=== PATIENT | male | born 1950 | race Caucasian/White ===

== ENCOUNTER 2017-05-31 13:09 | Observation (INO) ==
[~2017-05-31 13:09] MED LIST: Acetaminophen 325 MG TABLET PO PRN; Naloxone 0.4 MG/ML INJ IVP PRN
[2017-05-31 13:51] LABS: Basophils % 0.6 %; Eosinophils # 0.2 K/mcL (0.0-0.6); Eosinophils % 2.2 %; Hematocrit 49.2 % (37.5-50.1); Hemoglobin 15.7 g/dL (12.9-16.9); Immature Granulocytes % 0.4 % (0-4); Lymphocytes # 1.5 K/mcL (0.6-4.6); Lymphocytes % 21.2 %; Mean Corpuscular HGB Conc 31.9 g/dL (31.6-35.5); Mean Corpuscular Hemoglobin 28.8 pg (28.0-33.3); Mean Corpuscular Volume 90.1 fL (83.0-100.0); Mean Platelet Volume 8.9 fL (9.4-12.4); Monocytes % 13.9 %; Neutrophils # 4.5 K/mcL (1.6-8.9); Platelet Count 255 K/mcL (140-400); Red Blood Count 5.46 M/mcL (4.19-5.50); Red Cell Distribution Width 13.8 % (11.5-14.5); Segmented Neutrophils % 61.7 %
[2017-05-31 14:04] LABS: Troponin I < 0.03 ng/mL (< 0.04)
[2017-05-31 14:30] LABS: Alanine Aminotransferase 28 Units/L (7-52); Albumin 4.4 g/dL (3.5-5.7); Albumin/Globulin Ratio 1.3 (1.1-2.2); Alkaline Phosphatase 111 Units/L (34-104); Aspartate Amino Transferase 27 Units/L (13-39); BUN/Creatinine Ratio 10 (6-26); Bilirubin,Total 0.8 mg/dL (0.3-1.0); Blood Urea Nitrogen 12 mg/dL (8-23); Calcium 9.5 mg/dL (8.6-10.3); Carbon Dioxide 28 mEq/L (23-29); Chloride 98 mEq/L (98-107); Globulin 3.3 g/dL (2.4-3.5); Glucose 166 mg/dL (70-105); Osmolality,Calculated 286 (280-300); Potassium 4.4 mEq/L (3.5-5.1); Sodium 136 mEq/L (136-145); Total Protein 7.7 g/dL (6.4-8.9); eGFR For African Americans > 60 (> 60); eGFR For Non-African Americans > 60 (> 60)
[2017-05-31] MEDS ORDERED: Isovue-370 500 ML INFUS..BTL IV ONE (14:42)
--- NOTE | 2017-05-31 14:50 | Emergency Department Note ---
Disposition Clinical Impression: Unstable angina, History of coronary artery stent placement Chest pain Qualifiers: Chest pain type: unspecified Qualified Code(s): R07.9 - Chest pain, unspecified Disposition: Admitted As Inpatient Condition: Good Referrals: Aleiad Nolen CNP [Primary Care Provider] - Forms: ED Satisfaction Letter Time of Disposition: 16:04 Chest Pain HPI - General Chief Complaint: ED Chest Pain Stated Complaint: "CP x 2 days,took 2 nitro yesterday and 1 today" Time Seen by Provider: 05/31/17 14:17 Source: patient Limitations: no limitations Vital Signs Reviewed: Yes Nursing Notes Reviewed: Yes - History of Present Illness HPI Narrative: 67-year-old male history of hypertension, diabetes, hyperlipidemia, CAD s/p stents presents to the emergency department with chest pain. Intermittent chest pain for the past 2 days. Most recent incident noon today. This occurred while at rest. Sometimes certain movements with his left arm seems to exacerbate but pain does not go away afterwards. He has taken nitro with some minimal relief. Today he has only taken one nitro. He takes a baby aspirin daily. Describes as a sharp pain in his left chest without radiation to the jaw or the back. Currently his pain is nearly gone rates as 4/10 from 09/23. He does have some associated fatigue with the symptoms. He states this is similar to his prior [place] infarctions. On Tuesday when initially occurred it occurred with exertion he took 2 nitro with relief within an hour. He has some associated shortness of breath and diaphoresis. Denies any nausea or vomiting. He is noticed some swelling in his legs. He recently traveled from [place] here to [place] which was a [address] Dominguez is his legal services professional which he has not seen and over 5 years. No recent echocardiogram. No history of blood clots. Last heart catheterization from 10/15/14 showed single vessel CAD with previously stented right PAV segment patent. Pt complaint: chest pain Severity scale (1-10): 8 - Related Data Home Medications Medication Instructions Recorded Confirmed Amitriptyline [Elavil] 25 mg PO HS #0 10/15/14 05/31/17 Aspirin Enteric Coated [Aspirin EC] 81 mg PO DAILY 10/15/14 05/31/17 Atorvastatin [Lipitor] 80 mg PO HS 10/15/14 05/31/17 Metformin [Glucophage] 1,000 mg PO BID 10/15/14 05/31/17 Metoprolol [Lopressor] 25 mg PO BID #0 10/15/14 05/31/17 Furosemide [Lasix] 20 mg PO DAILY 05/31/17 05/31/17 Glimepiride [Amaryl] 4 mg PO QAM 05/31/17 05/31/17 HYDROcodone/Acet 7.5/325 mg [[place] 1 tab PO BID PRN 05/31/17 05/31/17 7.5-325 mg] Lisinopril [Zestril] 20 mg PO DAILY 05/31/17 05/31/17 Sildenafil Citrate [Revatio] 20 - 100 mg PO DAILY 05/31/17 05/31/17 Testosterone Cypionate 200 mg IM Q2W 05/31/17 05/31/17 [Depo-Testosterone] Previous Rx's Medication Instructions Recorded Finasteride [Proscar] 5 mg PO DAILY tablet 10/16/14 Allergies Allergy/AdvReac Type Severity Reaction Status Date / Time morphine AdvReac Itching Verified 05/31/17 16:05 All systems ED: reviewed and negative except as stated. Review of Systems: As Per HPI Constitutional: Reports: weakness. Denies: fever, chills ENT ED: Denies: congestion Cardiovascular: Reports: chest pain, dyspnea on exertion. Denies: palpitations Respiratory: Reports: dyspnea. Denies: cough Gastrointestinal: Denies: abdominal pain, nausea, vomiting Genitourinary: Denies: urgency, dysuria Musculoskeletal: Denies: back pain, neck pain Integumentary: Denies: rash, abrasion Neurological: Reports: weakness. Denies: headache Psychiatric: Denies: anxiety, depression Endocrine: Reports: fatigue Chest Pain PMH - Past Medical History Medical history: Reports: coronary artery disease, diabetes, hyperlipidemia, hypertension, myocardial infarction, other Surgical history: Reports: angioplasty/stent, cholecystectomy, orthopedic, other (Lumbar spine fusion), other (pain pump delivering Dilaudid to his spine) Psychiatric history: Reports: no psych history - Social History Smoking Status: Never smoker Alcohol use: Reports: none Drug use: Reports: none Physical Exam - General Limitations: no limitations General appearance: alert, in no apparent distress, obese - Head Head exam: atraumatic, normocephalic, normal inspection - Eye Eye exam: Present: normal appearance, PERRL, EOMI - ENT ENT exam: normal exam, normal oropharynx, mucous membranes moist - Neck Neck exam: Present: normal inspection, full ROM, trachea midline - Chest Chest inspection: Present: normal inspection, symmetric chest wall rise, tenderness (left chest) - Respiratory Respiratory exam: Present: normal lung sounds bilaterally. Absent: respiratory distress, wheezes - Cardiovascular Cardiovascular exam: Present: regular rate, normal rhythm, normal heart sounds - Expanded Cardiovascular Exam Peripheral pulses: 2+: radial (R), radial (L) - Abdominal Exam Abdominal exam: Present: soft, Non-Tender, normal bowel sounds, scar (right mid abdomen from pain pump). Absent: tenderness, distention, guarding, rebound, rigidity - Extremities Exam Extremities exam: Present: normal inspection, full ROM, normal capillary refill. Absent: tenderness, pedal edema, calf tenderness - Back Exam Back exam: Present: normal inspection, full ROM. Absent: tenderness, CVA tenderness (R), CVA tenderness (L) - Neurological Exam Neurological exam: Present: alert, oriented X3 - Psychiatric Psychiatric exam: Present: normal affect, normal mood - Skin Skin exam: Present: warm, dry, intact, normal color. Absent: rash, cyanosis, diaphoresis Course Course Narrative: 67-year-old male history of CAD presents with chest pain. Ongoing for the past 48 hours. States similar to his prior myocardial infarction. Worse with exertion but also worse sometimes at rest. Some associated shortness of breath. Exam is unremarkable. Given recentlong-distance travelwill obtain a CT of the chess to evaluate for pulmonary embolism. Initial EKG performed 1320 showed hyper acute T waves in the septal leads. Repeat EKG performed 1501 shows similar findings with minimally elevated ST segments. spoke to the on-call legal services professional and recommend to continue treatment for unstable angina, no emergent heart catheterization. Patient will be admitted. HEART score 4. - Reevaluation(s) Reevaluation #1: Pain resolved after 3rd nitro. BP remains stable. Awaiting CTA chest for PE. Patient placed on heparin low ACS, denies any GI bleed symptoms such as hematemesis, hemoptysis, hematuria, bloody stools, or melena. Time: 16:02 Reevaluation #2: Please see my attending's note for fiinal disposition and CT chest imaging followup. Treating for unstable angina. Time: 17:04 - Consultations Consultation #1: Spoke to gravel screener Dr. Rachana Moreira regarding the patient' s symptoms and EKG. Dr. Moreira reviewed the EKGs our fax. Review of his catheterization 2014. At this time does not meet STEMI criteria. Recommend to treat as unstable angina with aspirin, nitroglycerin and consideration for heparin. Patient will be getting a CT of the chest to evaluate for possible pulmonary embolism. Patient will require admission. Time: 15:33 Vital Signs Temperature 98.3 F 05/31/17 13:15 Pulse Rate 79 05/31/17 13:15 Respiratory Rate 20 05/31/17 13:15 Blood Pressure 196/84 05/31/17 13:15 O2 Sat by Pulse Oximetry 94 05/31/17 13:15 Temperature 98.3 F 05/31/17 13:15 Pulse Rate 80 05/31/17 15:53 Respiratory Rate 16 05/31/17 15:53 Blood Pressure 146/81 05/31/17 15:53 O2 Sat by Pulse Oximetry 92 05/31/17 15:53 Oxygen Delivery Oxygen Delivery Room Air Chest Pain - MDM Narrative Medical decision making narrative: Patient was discussed with my attending physician who agrees with ED management and final disposition. They independently evaluated the patient. Please refer to their attestation to this encounter for additional information. This note was generated by [employer] voice recognition software and as a result grammatical or spelling errors may occur using this program. - Medical Records Medical records reviewed: Yes I reviewed the patient's medical records. - Lab Data Lab results reviewed: Yes I reviewed the patient's lab results. Result diagrams: 05/31/17 13:27 05/31/17 13:27 Lab Results 05/31/17 05/31/17 05/31/17 Range/Units 13:27 13:27 16:10 WBC 7.3 (4.3-11.1) K/mcL RBC 5.46 (4.19-5.50) M/mcL Hgb 15.7 (12.9-16.9) g/dL Hct 49.2 (37.5-50.1) % MCV 90.1 (83.0-100.0) fL MCH 28.8 (28.0-33.3) pg MCHC 31.9 (31.6-35.5) g/dL RDW 13.8 (11.5-14.5) % Plt Count 255 (140-400) K/mcL MPV 8.9 L (9.4-12.4) fL Immature Gran % 0.4 (0-4) % Seg Neutrophils % 61.7 % Lymphocytes % 21.2 % Monocytes % 13.9 % Eosinophils % 2.2 % Basophils % 0.6 % Neutrophils # 4.5 (1.6-8.9) K/mcL Lymphocytes # 1.5 (0.6-4.6) K/mcL Monocytes # 1.0 (0.0-1.3) K/mcL Eosinophils # 0.2 (0.0-0.6) K/mcL Basophils # 0.0 (0.0-0.2) K/mcL Sodium 136 (136-145) mEq/L Potassium 4.4 (3.5-5.1) mEq/L Chloride 98 (98-107) mEq/L Carbon Dioxide 28 (23-29) mEq/L BUN 12 (8-23) mg/dL Creatinine 1.20 (0.70-1.30) mg/dL Est GFR ( Amer) > 60 (> 60) Est GFR (Non-Af Amer) > 60 (> 60) BUN/Creatinine Ratio 10 (6-26) Glucose 166 H (70-105) mg/dL Calculated Osmolality 286 (280-300) Calcium 9.5 (8.6-10.3) mg/dL Total Bilirubin 0.8 (0.3-1.0) mg/dL AST 27 (13-39) Units/L ALT 28 (7-52) Units/L Alkaline Phosphatase 111 H (34-104) Units/L Troponin I < 0.03 < 0.03 (< 0.04) ng/mL B-Natriuretic Peptide (Less than 100) pg/mL Serum Total Protein 7.7 (6.4-8.9) g/dL Albumin 4.4 (3.5-5.7) g/dL Globulin 3.3 (2.4-3.5) g/dL Albumin/Globulin Ratio 1.3 (1.1-2.2) TSH 1.760 (0.340-5.600) mcIU/mL 05/31/17 Range/Units 16:10 WBC (4.3-11.1) K/mcL RBC (4.19-5.50) M/mcL Hgb (12.9-16.9) g/dL Hct (37.5-50.1) % MCV (83.0-100.0) fL MCH (28.0-33.3) pg MCHC (31.6-35.5) g/dL RDW (11.5-14.5) % Plt Count (140-400) K/mcL MPV (9.4-12.4) fL Immature Gran % (0-4) % Seg Neutrophils % % Lymphocytes % % Monocytes % % Eosinophils % % Basophils % % Neutrophils # (1.6-8.9) K/mcL Lymphocytes # (0.6-4.6) K/mcL Monocytes # (0.0-1.3) K/mcL Eosinophils # (0.0-0.6) K/mcL Basophils # (0.0-0.2) K/mcL Sodium (136-145) mEq/L Potassium (3.5-5.1) mEq/L Chloride (98-107) mEq/L Carbon Dioxide (23-29) mEq/L BUN (8-23) mg/dL Creatinine (0.70-1.30) mg/dL Est GFR ( Amer) (> 60) Est GFR (Non-Af Amer) (> 60) BUN/Creatinine Ratio (6-26) Glucose (70-105) mg/dL Calculated Osmolality (280-300) Calcium (8.6-10.3) mg/dL Total Bilirubin (0.3-1.0) mg/dL AST (13-39) Units/L ALT (7-52) Units/L Alkaline Phosphatase (34-104) Units/L Troponin I (< 0.04) ng/mL B-Natriuretic Peptide 16 (Less than 100) pg/mL Serum Total Protein (6.4-8.9) g/dL Albumin (3.5-5.7) g/dL Globulin (2.4-3.5) g/dL Albumin/Globulin Ratio (1.1-2.2) TSH (0.340-5.600) mcIU/mL - Radiology Data Radiology results reviewed: Yes I reviewed the patient's radiology results. Chest X-Ray 05/31/17 13:18 IMPRESSION: Mild left basilar atelectasis versus pneumonia. D/ / Abisai Carmona MD / Abisai Carmona MD Interpreting Provider: Abisai Carmona MD - EKG Data EKG attestation: Yes I reviewed and interpreted this EKG. EKG results narrative: EKG performed 2017 normal sinus rhythm 82 bpm, no ST elevation or depression , hyper acute T-wave seen in the anterior leads, Q waves in lead III seen on prior EKG. Intervals are within normal limits. Compared to old EKG performed 03/31/2015 shows sinus bradycardia with subtle T wave changes. Will repeat EKG to reevaluate the T waves. No acute ischemic changes. Repeat EKG performed 1501 sinus rhythm 75 beats per minute, persistent hyper acute change T waves with some mild ST segment elevation and V2. Heart Score - Score History: Moderately Suspicious EKG: Normal Age: 45-65 Risk Factors: Equal/Greater than 3 risk factor or history of atherosclerotic disease Troponin: Less than normal limit HEART Score Total: 4 Attestation Statement - Attestation Attestation: I, Bernardino Farley DO, examined this patient [id number] and my medical decision-making was reviewed with Louie Cole DO , Resident Physician. I agree with the documented findings, disposition and treatment plan as described except to the extent set forth below. Please see my progress notes for details.
[2017-05-31] MEDS ORDERED: Aspirin 81 MG TAB.CHEW PO STA (15:07)
[2017-05-31] MEDS: Nitroglycerin 0.4 MG TAB.SUBL SL PRN ×3 (15:32→15:51)
[2017-05-31] MEDS ORDERED: *HR* Heparin 5,000 UNIT/ML VIAL IVP PRN ×2 (16:00)
[2017-05-31] MEDS ORDERED: *HR* Heparin 5,000 UNIT/ML VIAL IVP ONE (16:00)
--- NOTE | 2017-05-31 16:21 | Emergency Department Note ---
Disposition Clinical Impression: Unstable angina, History of coronary artery stent placement Chest pain Qualifiers: Chest pain type: unspecified Qualified Code(s): R07.9 - Chest pain, unspecified Disposition: Admitted As Inpatient Condition: Good Referrals: Aleida Nolen CNP [Primary Care Provider] - Forms: ED Satisfaction Letter Time of Disposition: 17:52 General Adult HPI - General Chief complaint: ED Chest Pain Stated complaint: "CP x 2 days,took 2 nitro yesterday and 1 today" Time Seen by Provider: 05/31/17 14:17 Source: patient Limitations: no limitations - History of Present Illness Pain Scale: 8 - Related Data Home Medications Medication Instructions Recorded Confirmed Amitriptyline [Elavil] 25 mg PO HS #0 10/15/14 05/31/17 Aspirin Enteric Coated [Aspirin EC] 81 mg PO DAILY 10/15/14 05/31/17 Atorvastatin [Lipitor] 80 mg PO HS 10/15/14 05/31/17 Metformin [Glucophage] 1,000 mg PO BID 10/15/14 05/31/17 Metoprolol [Lopressor] 25 mg PO BID #0 10/15/14 05/31/17 Furosemide [Lasix] 20 mg PO DAILY 05/31/17 05/31/17 Glimepiride [Amaryl] 4 mg PO QAM 05/31/17 05/31/17 HYDROcodone/Acet 7.5/325 mg [[place] 1 tab PO BID PRN 05/31/17 05/31/17 7.5-325 mg] Lisinopril [Zestril] 20 mg PO DAILY 05/31/17 05/31/17 Sildenafil Citrate [Revatio] 20 - 100 mg PO DAILY 05/31/17 05/31/17 Testosterone Cypionate 200 mg IM Q2W 05/31/17 05/31/17 [Depo-Testosterone] Previous Rx's Medication Instructions Recorded Finasteride [Proscar] 5 mg PO DAILY tablet 10/16/14 Allergies Allergy/AdvReac Type Severity Reaction Status Date / Time morphine AdvReac Itching Verified 05/31/17 16:05 Constitutional: Reports: weakness. Denies: fever, chills ENT ED: Denies: congestion Cardiovascular: Reports: chest pain, dyspnea on exertion. Denies: palpitations Respiratory: Reports: dyspnea. Denies: cough Gastrointestinal: Denies: abdominal pain, nausea, vomiting Genitourinary: Denies: urgency, dysuria Musculoskeletal: Denies: back pain, neck pain Integumentary: Denies: rash, abrasion Neurological: Reports: weakness. Denies: headache Psychiatric: Denies: anxiety, depression Endocrine: Reports: fatigue Past Medical History - Past Medical History Medical history: Reports: coronary artery disease, diabetes, hyperlipidemia, hypertension, myocardial infarction, other Surgical history: Reports: angioplasty/stent, cholecystectomy, orthopedic, other (Lumbar spine fusion), other (pain pump delivering Dilaudid to his spine) Psychiatric history: Reports: no psych history - Social History Smoking Status: Never smoker Smokeless Tobacco Status: No Alcohol use: Reports: none Drug use: Reports: none Physical Exam - General Limitations: no limitations General appearance: alert, in no apparent distress, obese Course Vital Signs Temperature 98.3 F 05/31/17 13:15 Pulse Rate 79 05/31/17 13:15 Respiratory Rate 20 05/31/17 13:15 Blood Pressure 196/84 05/31/17 13:15 O2 Sat by Pulse Oximetry 94 05/31/17 13:15 Temperature 98.3 F 05/31/17 13:15 Pulse Rate 80 05/31/17 15:53 Respiratory Rate 16 05/31/17 15:53 Blood Pressure 146/81 05/31/17 15:53 O2 Sat by Pulse Oximetry 92 05/31/17 15:53 Oxygen Delivery Oxygen Delivery Room Air Medical Decision Making - Lab Data Result diagrams: 05/31/17 13:27 05/31/17 13:27 Lab Results 05/31/17 05/31/17 05/31/17 Range/Units 13:27 13:27 13:27 WBC 7.3 (4.3-11.1) K/mcL RBC 5.46 (4.19-5.50) M/mcL Hgb 15.7 (12.9-16.9) g/dL Hct 49.2 (37.5-50.1) % MCV 90.1 (83.0-100.0) fL MCH 28.8 (28.0-33.3) pg MCHC 31.9 (31.6-35.5) g/dL RDW 13.8 (11.5-14.5) % Plt Count 255 (140-400) K/mcL MPV 8.9 L (9.4-12.4) fL Immature Gran % 0.4 (0-4) % Seg Neutrophils % 61.7 % Lymphocytes % 21.2 % Monocytes % 13.9 % Eosinophils % 2.2 % Basophils % 0.6 % Neutrophils # 4.5 (1.6-8.9) K/mcL Lymphocytes # 1.5 (0.6-4.6) K/mcL Monocytes # 1.0 (0.0-1.3) K/mcL Eosinophils # 0.2 (0.0-0.6) K/mcL Basophils # 0.0 (0.0-0.2) K/mcL PT 12.7 H (9.4-12.1) Seconds INR 1.2 APTT 32.0 (26.0-36.0) Seconds Sodium 136 (136-145) mEq/L Potassium 4.4 (3.5-5.1) mEq/L Chloride 98 (98-107) mEq/L Carbon Dioxide 28 (23-29) mEq/L BUN 12 (8-23) mg/dL Creatinine 1.20 (0.70-1.30) mg/dL Est GFR ( Amer) > 60 (> 60) Est GFR (Non-Af Amer) > 60 (> 60) BUN/Creatinine Ratio 10 (6-26) Glucose 166 H (70-105) mg/dL Calculated Osmolality 286 (280-300) Calcium 9.5 (8.6-10.3) mg/dL Total Bilirubin 0.8 (0.3-1.0) mg/dL AST 27 (13-39) Units/L ALT 28 (7-52) Units/L Alkaline Phosphatase 111 H (34-104) Units/L Troponin I < 0.03 (< 0.04) ng/mL B-Natriuretic Peptide (Less than 100) pg/mL Serum Total Protein 7.7 (6.4-8.9) g/dL Albumin 4.4 (3.5-5.7) g/dL Globulin 3.3 (2.4-3.5) g/dL Albumin/Globulin Ratio 1.3 (1.1-2.2) TSH 1.760 (0.340-5.600) mcIU/mL 05/31/17 05/31/17 Range/Units 16:10 16:10 WBC (4.3-11.1) K/mcL RBC (4.19-5.50) M/mcL Hgb (12.9-16.9) g/dL Hct (37.5-50.1) % MCV (83.0-100.0) fL MCH (28.0-33.3) pg MCHC (31.6-35.5) g/dL RDW (11.5-14.5) % Plt Count (140-400) K/mcL MPV (9.4-12.4) fL Immature Gran % (0-4) % Seg Neutrophils % % Lymphocytes % % Monocytes % % Eosinophils % % Basophils % % Neutrophils # (1.6-8.9) K/mcL Lymphocytes # (0.6-4.6) K/mcL Monocytes # (0.0-1.3) K/mcL Eosinophils # (0.0-0.6) K/mcL Basophils # (0.0-0.2) K/mcL PT (9.4-12.1) Seconds INR APTT (26.0-36.0) Seconds Sodium (136-145) mEq/L Potassium (3.5-5.1) mEq/L Chloride (98-107) mEq/L Carbon Dioxide (23-29) mEq/L BUN (8-23) mg/dL Creatinine (0.70-1.30) mg/dL Est GFR ( Amer) (> 60) Est GFR (Non-Af Amer) (> 60) BUN/Creatinine Ratio (6-26) Glucose (70-105) mg/dL Calculated Osmolality (280-300) Calcium (8.6-10.3) mg/dL Total Bilirubin (0.3-1.0) mg/dL AST (13-39) Units/L ALT (7-52) Units/L Alkaline Phosphatase (34-104) Units/L Troponin I < 0.03 (< 0.04) ng/mL B-Natriuretic Peptide 16 (Less than 100) pg/mL Serum Total Protein (6.4-8.9) g/dL Albumin (3.5-5.7) g/dL Globulin (2.4-3.5) g/dL Albumin/Globulin Ratio (1.1-2.2) TSH (0.340-5.600) mcIU/mL Critical Care Time Critical Care Time: Yes Total Critical Care Time: 35 Attestation: Critical care performed: Time is exclusive of separately billable procedures. Time includes: direct patient care, patient reassessment, coordination of patient care, interpretation of data (laboratory data, radiology data, and respiratory data), review of patient's medical records, medical consultation and documentation of patient care. Procedures included in critical care time: Procedures excluded from critical care time: Attestation Statement - Attestation Attestation: I, Bernardino Farley DO, examined this patient [id number] and my medical decision-making was reviewed with Louie Cole DO , Resident Physician. I agree with the documented findings, disposition and treatment plan as described except to the extent set forth below. Please see my progress notes for details. 67-year-old male presents to the emergency room for evaluation of chest pain. Patient has a history of coronary artery disease is required stenting. Patient took nitroglycerin at home and had resolution of the symptoms he decided to come in after several hours his symptoms is not greater than 24-hour secondary to his history. Patient does take aspirin but does not take any other anticoagulation. Patient denies any trauma or injury. Denies any recent illnesses fevers or chills. Denies any shortness of breath headache vision changes nausea vomiting or diarrhea. Having chest pain this point. Nitroglycerin and aspirin will be given along with EKG. Patient had with the repeat EKG ordered as well. Chest x-ray EKG labs include a CBC chemistry troponin F[place] this point. Disposition will most likely be admission to hospital. See detailed documentation of the physical exam, medical intervention , medical decision-making and disposition in the resident physician's note. No critical care applied treatment course was started 1615 Patient has negative initial troponin and EKG. Repeat EKG collected shows potential increase in elevation in leads V to V3. This information was passed onto the on-call smoking pipe maker. She recommended continuation of the symptomatic control with nitroglycerin and then start the patient on heparin. Patient denies any GI bleed, gastric ulcer, acid reflux, hematochezia , melena. Patient will be started on heparin at this time and medical management will be established. Patient had completion of the mitral travels almost complete resolution of the symptoms of this point. No further intervention needed. Patient will be admitted to the hospitalist for definitive management once the symptom control is completed and heparin is started. CT angiography of the chest is still pending secondary to the patient' s recent long-term travel as well as chest discomfort and shortness of breath 35 minutes of critical care applied to this patient's treatment course. [address] imaging of the chest. No acute signs of pulmonary emboli. Patient will be admitted for definitive management. Patient has stable presentation this time. Heparin has been started. CT angiography of the chest is negative for acute signs of pulmonary my infection. Patient will be admitted for ACS rule out and evaluation. Patient is otherwise clinically stable pain is been resolved entire treatment course here in the emergency room.
[2017-05-31 17:02] LABS: INR 1.2; Prothrombin Time 12.7 Seconds (9.4-12.1)
[2017-05-31] MEDS: Heparin 25,000 UNIT/500 ML D5W 25,000 UNIT/500 ML BAG IVC SCH (17:57)
[2017-06-01 00:25] LABS: Basophils # 0.1 K/mcL (0.0-0.2); Basophils % 0.7 %; Eosinophils # 0.2 K/mcL (0.0-0.6); Eosinophils % 2.7 %; Hematocrit 43.6 % (37.5-50.1); Hemoglobin 14.4 g/dL (12.9-16.9); Immature Granulocytes % 0.2 % (0-4); Lymphocytes # 2.4 K/mcL (0.6-4.6); Lymphocytes % 27.6 %; Mean Corpuscular Hemoglobin 29.1 pg (28.0-33.3); Mean Corpuscular Volume 88.1 fL (83.0-100.0); Monocytes # 1.1 K/mcL (0.0-1.3); Monocytes % 13.1 %; Neutrophils # 4.8 K/mcL (1.6-8.9); Platelet Count 248 K/mcL (140-400); Red Blood Count 4.95 M/mcL (4.19-5.50); Red Cell Distribution Width 13.7 % (11.5-14.5); Segmented Neutrophils % 55.7 %
[2017-06-01 00:38] LABS: BUN/Creatinine Ratio 11 (6-26); Blood Urea Nitrogen 12 mg/dL (8-23); Calcium 8.8 mg/dL (8.6-10.3); Carbon Dioxide 29 mEq/L (23-29); Chloride 100 mEq/L (98-107); Glucose 145 mg/dL (70-105); Osmolality,Calculated 280 (280-300); Potassium 4.1 mEq/L (3.5-5.1); Sodium 134 mEq/L (136-145); eGFR For African Americans > 60 (> 60); eGFR For Non-African Americans > 60 (> 60)
[2017-06-01] MEDS: 0.9 % Sodium Chloride 1,000 ML IVC SCH ×2 (01:35→21:04)
--- NOTE | 2017-06-01 01:43 | Internal Med History&Physical ---
Date of Encounter: 05/31/17 Time of Encounter: 20:00 Internal Medicine - H&P: HPI Chief complaint: Chest pain Admitted From: Home Plans for Post Hospital Care: Home History of present illness: Mr. Kaiser is a 67 year old male presented to ER for chest pain. Past medical history is significant for CAD S/P stent, diabetes, hypertension, chronic back pain on pain pump. Patient said he started to have chest pain since Tuesday evening, pain is intermittent, resolved after sublingual nitroglycerin. Patient has to episode of chest pain on Tuesday and one episode on Tuesday. Today patient has chest pain , more constant, lasted several hours. Pain is located on mid chest, radiated to left arm, sharp. Patient has shortness of breath, and diaphoresis. No nausea. In the emergency room, patient was considered unstable angina and cardiac consult was called, recommend to start heparin drip. Patient was placed on heparin drip and admitted for further management. When I saw patient in the emergency room, patient is pain-free. Past Med Surg Social Fam HX - Past Medical History Medical history: coronary artery disease, diabetes, hyperlipidemia, hypertension , myocardial infarction, other Psychiatric history: no psych history - Past Surgical History Surgical History: angioplasty/stent, cholecystectomy, orthopedic, other (Lumbar spine fusion), other (pain pump delivering Dilaudid to his spine) - Social History Smoking Status: Never smoker Smokeless Tobacco Status: No Alcohol use: none Drug use: none - Family History Mother Living Status: Hx Family Neurologic Disorders: Yes (alzheimers) Father Living Status: Hx Family Cardiac Disorders: Yes (Patient states his father had heart spasms which presumably was angina) Sister Living Status: Still Living Internal Medicine - H&P: Meds Amitriptyline [Elavil] 25 mg PO HS #0 10/15/14 [History] Aspirin Enteric Coated [Aspirin EC] 81 mg PO DAILY 10/15/14 [History] Atorvastatin [Lipitor] 80 mg PO HS 10/15/14 [History] Metformin [Glucophage] 1,000 mg PO BID 10/15/14 [History] Metoprolol [Lopressor] 25 mg PO BID #0 10/15/14 [History] Finasteride [Proscar] 5 mg PO DAILY tablet 10/16/14 [Rx] Furosemide [Lasix] 20 mg PO DAILY 05/31/17 [History] Glimepiride [Amaryl] 4 mg PO QAM 05/31/17 [History] HYDROcodone/Acet 7.5/325 mg [[place] 7.5-325 mg] 1 tab PO BID PRN 05/31/17 [ History] Lisinopril [Zestril] 20 mg PO DAILY 05/31/17 [History] Sildenafil Citrate [Revatio] 20 - 100 mg PO DAILY 05/31/17 [History] Testosterone Cypionate [Depo-Testosterone] 200 mg IM Q2W 05/31/17 [History] 3 Allergy/AdvReac Type Severity Reaction Status Date / Time morphine AdvReac Itching Verified 05/31/17 16:05 All Systems PM: A 10-system review of systems was performed and is negative for pertinent findings except as documented above in the HPI. - Constitutional Vitals: Temp Pulse Resp BP Pulse Ox 98.3 F 67 18 101/68 97 06/01/17 01:20 06/01/17 01:20 06/01/17 01:20 06/01/17 01:20 06/01/17 01:20 General appearance: Present: A&O X 3, no acute distress, answers questions appropriately - Head Head exam: Present: atraumatic, normocephalic - Eye Eye exam: Present: PERRL, conjuntiva pink, sclera anicteric Pupils: Present: PERRL - Neck Neck exam general surgery: Present: supple, trachea midline. Absent: lymphadenopathy - Respiratory Respiratory exam: Present: CTAB. Absent: accessory muscle use, rales, rhonchi, wheezes - Cardiovascular Cardiovascular exam: Present: RRR, +S1, +S2. Absent: diastolic murmur, gallop, rubs, systolic murmur - GI/Abdominal GI/Abdominal exam: Present: normal bowel sounds, soft, no peritoneal signs. Absent: distended, tenderness - Extremities Exam Extremities exam: Present: pedal edema (Mild pedal edema bilaterally), warm, radial pulses palpable and symmetrical. Absent: calf tenderness, cyanotic - Neurological Exam Neurological exam: Present: CN II-XII intact, oriented X3, no focal deficits. Absent: pronater drift, facial droop, speech deficit - Skin Skin exam: Present: dry, intact Internal Med - H&P Results - Labs CBC & Chem 7: 06/01/17 00:07 06/01/17 00:07 Labs: Short CBC 06/01/17 Range/Units 00:07 WBC 8.6 (4.3-11.1) K/mcL Hgb 14.4 (12.9-16.9) g/dL Hct 43.6 (37.5-50.1) % Plt Count 248 (140-400) K/mcL Neutrophils # 4.8 (1.6-8.9) K/mcL BMP 06/01/17 00:07 Sodium 134 L Potassium 4.1 Chloride 100 Carbon Dioxide 29 BUN 12 Creatinine 1.07 Glucose 145 H Calcium 8.8 Cardiac Enzymes 06/01/17 Range/Units 00:07 Troponin I < 0.03 (< 0.04) ng/mL - Assessment and plan (1) DVT prophylaxis Current Visit: Yes Status: Acute Assessment and plan: Patient is on heparin drip (2) Chest pain Current Visit: Yes Status: Acute Assessment and plan: Patient has chest pain, history of CAD S/P stent. EKG has been reviewed by cardiology, STEMI is ruled out. CTA negative for PE or dissection - Place patient on continuous cardiac monitoring - Track 3 sets of troponin - Heparin drip started per cardiology for unstable angina - Cardio consult will see patient in a.m. Qualifiers: Chest pain type: unspecified Qualified Code(s): R07.9 - Chest pain, unspecified (3) History of coronary artery stent placement Current Visit: Yes Status: Acute Assessment and plan: Continue home medications aspirin, beta lois, and statin. 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 Closely monitor BP Qualifiers: Hypertension type: essential hypertension Qualified Code(s): I10 - Essential (primary) hypertension - Time Spent With Patient Total time spent is greater than 50% in coordination of care (as documented) at patient's floor/unit and/or counseling patient: 40 minutes Greater than 35 minutes
[2017-06-01] MEDS ORDERED: Dextrose Gel 15 GM/37.5 ML TUBE PO PRN ×2 (01:49)
[2017-06-01] MEDS ORDERED: *HR* Dextrose 50 % in Water (Syg) 50 ML SYRINGE IVP PRN (01:49)
[2017-06-01] MEDS ORDERED: D5% in Water 1,000 ML IVC PRN (01:49)
--- NOTE | 2017-06-01 08:21 | Event Note ---
<John Tello - Last Filed: 06/01/17 15:09> Date of Encounter: 06/01/17 Time of Encounter: 08:21 Subjective: Patient seen and examined resting comfortably in bed. He denies any new c/o this AM. Patient is awaiting pharmacologi stress test today. Physical Exam: General appearance: Present: A&O X 3, no acute distress, answers questions appropriately, pleasant Head exam: Present: atraumatic, normocephalic Eye exam: Present: PERRL, conjuntiva pink, sclera anicteric Pupils: Present: PERRL Neck exam general surgery: Present: supple, trachea midline. Absent: lymphadenopathy Respiratory exam: Present: CTAB. Absent: accessory muscle use, rales, rhonchi, wheezes Cardiovascular exam: Present: RRR, +S1, +S2. Absent: diastolic murmur, gallop, rubs, systolic murmur GI/Abdominal exam: Present: normal bowel sounds, soft, no peritoneal signs, right anterior abd pain stimulator place. Absent: distended, tenderness Extremities exam: Present: warm, radial pulses palpable and symmetrical. Absent : calf tenderness, cyanotic, pedal edema Neurological exam: Present: CN II-XII intact, no focal deficits. Absent: pronater drift, facial droop, speech deficit Skin exam: Present: dry, intact - Assessment and plan (1) Unstable angina Current Visit: Yes Status: Acute Assessment and plan: EKG has been reviewed by cardiology, STEMI is ruled out. CTA is negative for PE or dissection Negative troponin x3 Heparin drip per cardiology for unstable angina 06/01/17 Pharmacologic stress test revealed gated EF 67%, small sized, mild intensity, reversible apical inferior perfusion suggestive of a small area of ischemia. Low risk positive stress test. Continuous cardiac monitoring Cardiac diet, NPO after NM for possible LHC in AM Cardiology following, will await further recommendations (2) History of coronary artery stent placement Current Visit: Yes Status: Acute Assessment and plan: Continue home medications aspirin, beta lois, and statin. (3) Hypertension Current Visit: No Status: Acute Assessment and plan: Continue home medications. 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 (6) DVT prophylaxis Current Visit: Yes Status: Acute Assessment and plan: Heparin drip Case discussed with and plan agreed upon with Dr. Reyes. <Chau Reyes - Last Filed: 06/01/17 15:36> Date of Encounter: 06/01/17 I performed an independent interview and examine this patient. I agree with the findings, assessment, and plan of Dr. Tello, internal medicine resident. abnormal stress test with plans for probable left heart catheterization in the morning. We will defer to cardiology. A she is currently resting comfortably without any complaints. No chest pain. Vitals remained stable. Blood pressure mildly elevated. Will increase metoprolol to 50 mg by mouth twice a day. Remains on heparin drip. Continue to monitor. All else as outlined above.
[2017-06-01] MEDS: Insulin LISPRO 300 UNITS/3 ML VIAL SQ SCH ×4 (09:01→21:11)
[2017-06-01] MEDS: Aspirin Enteric Coated 81 MG Tablet PO SCH (09:05)
[2017-06-01] MEDS: Finasteride 5 MG TABLET PO SCH (09:05)
[2017-06-01] MEDS: Furosemide 20 MG TABLET PO SCH (09:05)
[2017-06-01] MEDS ORDERED: Regadenoson 0.4 MG/5 ML SYRINGE IVP ONE (11:26)
[2017-06-01] MEDS: Heparin 25,000 UNIT/500 ML D5W 25,000 UNIT/500 ML BAG IVC SCH (15:54)
[2017-06-01] MEDS: *HR* HYDROcodone/Acet 7.5/325 mg TABLET PO PRN (21:04)
[2017-06-02 05:39] LABS: Basophils % 0.5 %; Eosinophils # 0.3 K/mcL (0.0-0.6); Eosinophils % 3.7 %; Hematocrit 41.6 % (37.5-50.1); Hemoglobin 13.2 g/dL (12.9-16.9); Immature Granulocytes % 0.3 % (0-4); Lymphocytes # 2.6 K/mcL (0.6-4.6); Lymphocytes % 35.1 %; Mean Corpuscular HGB Conc 31.7 g/dL (31.6-35.5); Mean Corpuscular Hemoglobin 28.3 pg (28.0-33.3); Mean Corpuscular Volume 89.3 fL (83.0-100.0); Mean Platelet Volume 8.9 fL (9.4-12.4); Monocytes # 1.2 K/mcL (0.0-1.3); Monocytes % 15.8 %; Neutrophils # 3.3 K/mcL (1.6-8.9); Platelet Count 229 K/mcL (140-400); Red Blood Count 4.66 M/mcL (4.19-5.50); Red Cell Distribution Width 13.9 % (11.5-14.5); Segmented Neutrophils % 44.6 %
[2017-06-02 05:53] LABS: INR 1.3; Prothrombin Time 13.7 Seconds (9.4-12.1)
[2017-06-02 05:55] LABS: BUN/Creatinine Ratio 11 (6-26); Blood Urea Nitrogen 13 mg/dL (8-23); Calcium 8.5 mg/dL (8.6-10.3); Carbon Dioxide 30 mEq/L (23-29); Chloride 99 mEq/L (98-107); Glucose 207 mg/dL (70-105); Osmolality,Calculated 280 (280-300); Sodium 132 mEq/L (136-145); eGFR For African Americans > 60 (> 60); eGFR For Non-African Americans > 60 (> 60)
[2017-06-02] MEDS: Heparin 25,000 UNIT/500 ML D5W 25,000 UNIT/500 ML BAG IVC SCH (08:20)
[2017-06-02] MEDS: HYDROMORPHONE IT SCH ×2 (08:21→18:24)
[2017-06-02] MEDS: Insulin LISPRO 300 UNITS/3 ML VIAL SQ SCH ×4 (08:23→21:20)
[2017-06-02] MEDS: Aspirin Enteric Coated 81 MG Tablet PO SCH (08:23)
[2017-06-02] MEDS: Finasteride 5 MG TABLET PO SCH (08:24)
[2017-06-02] MEDS: Furosemide 20 MG TABLET PO SCH (08:24)
--- NOTE | 2017-06-02 09:44 | Internal Med Progress Note ---
<Pete Orta - Last Filed: 06/02/17 14:02> Date of Encounter: 06/02/17 Time of Encounter: 09:35 - Assessment and plan (1) Unstable angina Current Visit: Yes Status: Acute Assessment and plan: Patient has chest pain, history of CAD S/P stent. Pharmacologic stress ECG is negative for ischemia at level of heart rate achieved. Gated EF = 67%. Small sized, mild intensity, reversible apical inferior perfusion suggestive of a small area of ischemia. Trop negative x 4 CTA negative for PE or dissection Continuous cardiac monitoring Continue Heparin drip started per cardiology for unstable angina Patient has been NPO since midnight Plan for [facility] when available. (2) History of coronary artery stent placement Current Visit: Yes Status: Acute Assessment and plan: Continue home medications aspirin, beta lois, and statin. (3) Hypertension Current Visit: No Status: Acute Assessment and plan: Continue home medications. Closely monitor BP Qualifiers: Hypertension type: essential hypertension Qualified Code(s): I10 - Essential (primary) hypertension (4) Diabetes Current Visit: No Status: Acute Assessment and plan: Place patient on sliding scale coverage Qualifiers: Diabetes mellitus type: type 2 Diabetes mellitus fci insulin use: without moth exterminator use Diabetes mellitus complication status: without complication Qualified Code(s): E11.9 - Type 2 diabetes mellitus without complications (5) DVT prophylaxis Current Visit: Yes Status: Acute Assessment and plan: Patient is on heparin drip - Time Spent With Patient Total time spent is greater than 50% in coordination of care (as documented) at patient's floor/unit and/or counseling patient: - Subjective Interval history: Patient reports improvement of chest pain. He confirms that he has not eaten today. Symptoms similar prior CAD before stent placement. He had worsening chest pain and SOB with exertion. Denies abdominal pain, n/v/d/c. Has not further complaints. No overnight acute events. - Constitutional Vitals: Temp Pulse Resp BP Pulse Ox 97.3 F L 58 17 114/69 95 06/02/17 07:00 06/02/17 07:00 06/02/17 07:00 06/02/17 07:00 06/02/17 07:00 General appearance: Present: A&O X 3, no acute distress, answers questions appropriately - Head Head exam: Present: atraumatic, normocephalic - Eye Eye exam: Present: EOMI, conjuntiva pink, sclera anicteric - Neck Neck exam general surgery: Present: supple, trachea midline. Absent: lymphadenopathy - Respiratory Respiratory exam: Present: CTAB. Absent: accessory muscle use, rales, rhonchi, wheezes - Cardiovascular Cardiovascular exam: Present: bradycardia, distant heart sounds, +S1, +S2. Absent: diastolic murmur, gallop, rubs, systolic murmur - GI/Abdominal GI/Abdominal exam: Present: normal bowel sounds, soft, no peritoneal signs. Absent: distended, tenderness - Extremities Exam Extremities exam: Present: warm, radial pulses palpable and symmetrical. Absent : calf tenderness, cyanotic, pedal edema - Neurological Exam Neurological exam: Present: CN II-XII intact, oriented X3, no focal deficits. Absent: pronater drift, facial droop, speech deficit - Skin Skin exam: Present: dry, intact Internal Medicine: Result - Labs CBC & Chem 7: 06/02/17 05:22 06/02/17 05:22 Labs: Short CBC 06/02/17 Range/Units 05:22 WBC 7.5 (4.3-11.1) K/mcL Hgb 13.2 (12.9-16.9) g/dL Hct 41.6 (37.5-50.1) % Plt Count 229 (140-400) K/mcL Neutrophils # 3.3 (1.6-8.9) K/mcL BMP 06/02/17 05:22 Sodium 132 L Potassium 4.0 Chloride 99 Carbon Dioxide 30 H BUN 13 Creatinine 1.19 Glucose 207 H Calcium 8.5 L - ABG Interpretation ABG results: PT/INR, D-dimer PT 13.7 Seconds (9.4-12.1) H 06/02/17 05:22 - Impressions Impressions Echocardiogram 06/01/17 01:46 Impressions: LVEF 55-60%. Normal LV chamber size, wall thickness and function. Moderate left ventricular diastolic dysfunction. Normal right ventricular structure and function. Unable to estimate RVSP due to lack of TR jet. No significant valvular dysfunction. Left Ventricular Wall Motion: Rest Echo Findings All wall segments showed normal motion. Findings: Study Quality * Technically sub-optimal due to poor echocardiographic windows. ECG Findings * Normal sinus rhythm. Left Ventricle * LVEF 55-60%. * Normal LV chamber size, wall thickness and function. * Moderate left ventricular diastolic dysfunction. Right Ventricle * Normal right ventricular structure and function. Left Atrium * Moderately dilated left atrium. Right Atrium * Mildly dilated right atrium. Interatrial Septum * Interatrial septum not well evaluated. Aortic Valve * Trileaflet aortic valve with normal function. * No aortic regurgitation. * No aortic stenosis. Mitral Valve * Normal mitral valve structure and function. * No mitral regurgitation. * No mitral stenosis. Tricuspid Valve * Normal tricuspid valve structure and function. * No tricuspid regurgitation. * Unable to estimate RVSP due to lack of TR jet. Pulmonic Valve * Pulmonic valve not well visualized. * No pulmonic regurgitation. Aorta * Normally sized aortic root. Pericardium * The pericardium appears normal. IVC * The IVC is not well evaluated. Pulmonary Artery * Pulmonary artery not well visualized. 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 fci use Diabetes mellitus complication status: without complication Qualified Code(s): E11.9 - Type 2 diabetes mellitus without complications (5) DVT prophylaxis Current Visit: Yes Status: Acute - Time Spent With Patient Total time spent is greater than 50% in coordination of care (as documented) at patient's floor/unit and/or counseling patient: - Constitutional Vitals: Temp Pulse Resp BP Pulse Ox 97.3 F L 58 17 114/69 95 06/02/17 07:00 06/02/17 07:00 06/02/17 07:00 06/02/17 07:00 06/02/17 10:05 Internal Medicine: Result - Labs CBC & Chem 7: 06/02/17 05:22 06/02/17 05:22 Labs: Short CBC 06/02/17 Range/Units 05:22 WBC 7.5 (4.3-11.1) K/mcL Hgb 13.2 (12.9-16.9) g/dL Hct 41.6 (37.5-50.1) % Plt Count 229 (140-400) K/mcL Neutrophils # 3.3 (1.6-8.9) K/mcL BMP 06/02/17 05:22 Sodium 132 L Potassium 4.0 Chloride 99 Carbon Dioxide 30 H BUN 13 Creatinine 1.19 Glucose 207 H Calcium 8.5 L - ABG Interpretation ABG results: PT/INR, D-dimer PT 13.7 Seconds (9.4-12.1) H 06/02/17 05:22 - Impressions Impressions Echocardiogram 06/01/17 01:46 Impressions: LVEF 55-60%. Normal LV chamber size, wall thickness and function. Moderate left ventricular diastolic dysfunction. Normal right ventricular structure and function. Unable to estimate RVSP due to lack of TR jet. No significant valvular dysfunction. Left Ventricular Wall Motion: Rest Echo Findings All wall segments showed normal motion. Findings: Study Quality * Technically sub-optimal due to poor echocardiographic windows. ECG Findings * Normal sinus rhythm. Left Ventricle * LVEF 55-60%. * Normal LV chamber size, wall thickness and function. * Moderate left ventricular diastolic dysfunction. Right Ventricle * Normal right ventricular structure and function. Left Atrium * Moderately dilated left atrium. Right Atrium * Mildly dilated right atrium. Interatrial Septum * Interatrial septum not well evaluated. Aortic Valve * Trileaflet aortic valve with normal function. * No aortic regurgitation. * No aortic stenosis. Mitral Valve * Normal mitral valve structure and function. * No mitral regurgitation. * No mitral stenosis. Tricuspid Valve * Normal tricuspid valve structure and function. * No tricuspid regurgitation. * Unable to estimate RVSP due to lack of TR jet. Pulmonic Valve * Pulmonic valve not well visualized. * No pulmonic regurgitation. Aorta * Normally sized aortic root. Pericardium * The pericardium appears normal. IVC * The IVC is not well evaluated. Pulmonary Artery * Pulmonary artery not well visualized. - Attending Attestation I performed an independent interview and exam of this patient. I agree with the findings, assessment, and plan of Dr. Orta, internal medicine pharmacist intern. My input is reflected in his note. Patient had abnormal stress test yesterday and is planned for left heart catheterization today. Patient remains pain-free without any complaints. We will await further recommendations after the procedure. All else as outlined above.
--- NOTE | 2017-06-02 12:10 | Cardiology Consult Note ---
Date of Encounter: 06/02/17 Time of Encounter: 12:00 Assessment and Plan (1) Abnormal stress test Current Visit: Yes Status: Acute Stress test completed for evaluation of chest pain. Stress test results reviewed with patient and . Low risk positive stress test findings. Stress test shows mild inferior apical perfusion reversible defect. TTE completed this admission and shows EF 55-60 %. No significant valvular disease. CTA negative for PE. Last cardiac work-up in 2014 included LHC. LHC revealed patent stent and mild CAD. Reports chest pain identical to when cardiac stent placed. LHC vs medical management discussed. Patient wants to proceed with LHC due to ongoing symptoms and previous experience. LHC R/B/A reviewed and patient voiced understanding. I will discuss further with Dr. Dominguez. No indication for heparin gtt, ok to discontinue. Continue asa, statin, and bb. Healthy heart diet and exercise discussed. (2) Coronary artery disease Current Visit: No Status: Acute H/o previous cardiac stent placement. Continue LHC with asa, statin, and bb. Qualifiers: Coronary Disease-Associated Artery/Lesion type: [place] artery [place] vs. transplanted heart: [place] heart Associated angina: without angina Qualified Code(s): I25.10 - Atherosclerotic heart disease of [place] coronary artery without angina pectoris (3) Chest pain Current Visit: Yes Status: Acute Qualifiers: Chest pain type: unspecified Qualified Code(s): R07.9 - Chest pain, unspecified Discussion w patient/family: The assessment and plan as outlined above was discussed with the patient and/or family members who expressed understanding and agreement. All questions were answered. Thank you for involving us in the care of your patient. Please call with any questions. History of Present Illness Consult date: 06/02/17 Requesting physician: Perez Orta Consult reason: abnormal stress test Chief complaint: Chest pain History of present illness: Mr. Kaiser is a 67 year old male with past medical history of CAD s/p previous PCI, HTN, DM type II, and obesity who presents with chest pain. C/o sharp left sided chest pain when raising his arm to brush his hair Tuesday night. The pain lasted about 30 min and resolved after taking two SL NTG. His pain was followed by fatigue and increasing SOB. He developed recurrent pain Tuesday when he decided to go to the ED. His pain was relieved with NTG in the ED. Patient reports pain is identical to what he felt prior to previous stent. Initial cardiac work-up was negative so a stress test was ordered. Cardiology consulted for abnormal stress test. Past Med Surg Social Fam HX - Past Medical History Attestation: Yes The following information was validated with the patient. Medical history: coronary artery disease, diabetes, hyperlipidemia, hypertension , myocardial infarction Psychiatric history: no psych history - Past Surgical History Surgical History: angioplasty/stent, cholecystectomy, orthopedic, other - Social History Smoking Status: Never smoker Smokeless Tobacco Status: No Alcohol use: none Drug use: none - Family History Mother Living Status: Hx Family Neurologic Disorders: Yes (alzheimers) Father Living Status: Hx Family Cardiac Disorders: Yes (Patient states his father had heart spasms which presumably was angina) Sister Living Status: Still Living Medications and Allergies Amitriptyline [Elavil] 25 mg PO HS #0 10/15/14 [History] Aspirin Enteric Coated [Aspirin EC] 81 mg PO DAILY 10/15/14 [History] Atorvastatin [Lipitor] 80 mg PO HS 10/15/14 [History] Metformin [Glucophage] 1,000 mg PO BID 10/15/14 [History] Metoprolol [Lopressor] 25 mg PO BID #0 10/15/14 [History] Finasteride [Proscar] 5 mg PO DAILY tablet 10/16/14 [Rx] Furosemide [Lasix] 20 mg PO DAILY 05/31/17 [History] Glimepiride [Amaryl] 4 mg PO QAM 05/31/17 [History] HYDROcodone/Acet 7.5/325 mg [[place] 7.5-325 mg] 1 tab PO BID PRN 05/31/17 [ History] Lisinopril [Zestril] 20 mg PO DAILY 05/31/17 [History] Sildenafil Citrate [Revatio] 20 - 100 mg PO DAILY 05/31/17 [History] Testosterone Cypionate [Depo-Testosterone] 200 mg IM Q2W 05/31/17 [History] Hydromorphone (Pf) [Hydromorphone Intrathecal Pump] 1 each IT AD 06/01/17 [ History] 3 Allergy/AdvReac Type Severity Reaction Status Date / Time morphine AdvReac Itching Verified 05/31/17 16:05 All Systems Review: The remainder of the systems were reviewed and are negative Physical Examination Vital Signs, Last 4 Hours Pulse Ox 06/02/17 10:05 95 Vital Signs Temp Pulse Resp BP Pulse Ox 06/02/17 10:05 95 06/02/17 07:00 97.3 F L 58 17 114/69 95 06/02/17 04:00 97.6 F 50 18 114/63 97 06/01/17 20:00 97.6 F 80 18 135/90 93 06/01/17 15:47 97.5 F L 65 16 166/87 98 Intake and Output 06/01/17 06/02/17 06/02/17 23:59 07:59 15:59 Intake Total 1000 / 1000 448 / 448 50 / 50 Output Total 200 / 200 300 / 300 500 / 500 Balance 800 / 800 148 / 148 -450 / -450 Intake: IV Fluids 1000 / 1000 448 / 448 50 / 50 0.9 % Sodium Chloride 1,000 ML 1000 / 1000 @ 60 mls/hr IVC .[id number] SANDRA Rx #:[id number] Heparin 25,000 UNIT/500 ML D5W 448 / 448 50 / 50 25,000 unit In 500 ml @ 12 UNIT /KG/HR 29.523 mls/hr IVC . [id number] SANDRA Rx#:[id number] Oral 0 / 0 Output: Urine 200 / 200 300 / 300 500 / 500 Other: Weight 122.5 kg Blood Glucose* 176 175 132 Patient Weight 06/02/17 23:59 Weight 122.5 kg General: Conversant, No Apparent Distress HEENT: Atraumatic, Normocephaly, Mucus Membranes Moist Neck: No JVD, Normal carotid pulses Cardiac: Reg Rate and Rhythm, Normal S1 and S2, No Murmur Lungs: Normal Breath Sounds, No Wheeze, Rales, Rhonchi Neuro: Alert and responsive, No focal deficits noted Abdomen: Soft, Non-Tender Skin: No rashes noted on visualized skin Musculoskeletal: No Chest Wall Tenderness Extremities: No Clubbing, No Cyanosis, No Edema, Normal Pulses Results 06/02/17 05:22 06/02/17 05:22 Lab Results 06/02/17 06/02/17 06/02/17 05:22 05:22 05:22 WBC 7.5 Hgb 13.2 Hct 41.6 Plt Count 229 INR 1.3 APTT 99.1 H Sodium Potassium Chloride Chest X-Ray 05/31/17 13:18 IMPRESSION: Mild left basilar atelectasis versus pneumonia. D/ / Abisai Carmona MD / Abisai Carmona MD Interpreting Provider: Abisai Carmona MD Chest CTA 05/31/17 14:42 IMPRESSION: No evidence of pulmonary embolism or acute pulmonary abnormality. Left lower lobe nodule measuring greater than 1 cm. Please note the patient has a history of thyroid biopsy. D/ / Eduardo Craig MD / Eduardo Craig MD Interpreting Provider: Eduardo Craig MD Echocardiogram 06/01/17 01:46 Impressions: LVEF 55-60%. Normal LV chamber size, wall thickness and function. Moderate left ventricular diastolic dysfunction. Normal right ventricular structure and function. Unable to estimate RVSP due to lack of TR jet. No significant valvular dysfunction. Left Ventricular Wall Motion: Rest Echo Findings All wall segments showed normal motion. Carbon Dioxide BUN Creatinine Glucose Calcium 06/02/17 05:22 WBC Hgb Hct Plt Count INR APTT Sodium 132 L Potassium 4.0 Chloride 99 Carbon Dioxide 30 H BUN 13 Creatinine 1.19 Glucose 207 H Calcium 8.5 L - Imaging and Cardiology Stress Test: report reviewed - EKG Interpretation EKG results cardiology: personally reviewed (Sr with no acute ST changes) Consult Discharge Plan - Plan Referrals: Aleida Nolen WILDLIFE OFFICER [Primary Care Provider] -
[2017-06-02] MEDS ORDERED: Heparin 1,000 UNITS/500 mL 500 ML ONE (13:17)
[2017-06-02] MEDS ORDERED: *HR* Heparin 10,000 UNIT/10 ML VIAL ONE (13:17)
[2017-06-02] MEDS ORDERED: ISOVUE-370 200 ML INFUS..BTL IV ONE (13:17)
[2017-06-02] MEDS ORDERED: Nitroglycerin 1,000 MCG/10 ML VIAL IV ONE (13:17)
[2017-06-02] MEDS ORDERED: 0.9 % Sodium Chloride 1,000 ML ONE (13:17)
[2017-06-02] MEDS: 0.9 % Sodium Chloride 1,000 ML IVC SCH (13:18)
[2017-06-02] MEDS ORDERED: *HR* Midazolam HCl 2 MG/2 ML VIAL ONE (13:56)
--- NOTE | 2017-06-02 13:56 | Pre-Sedation Evaluation ---
Pre-sedation evaluation - Pre-sedation checklist Date of procedure: 06/02/17 Procedure: [facility] Recent Vitals: Last Vital Signs Temp 97.3 F L 06/02/17 07:00 Pulse 58 06/02/17 07:00 Resp 17 06/02/17 07:00 BP 114/69 06/02/17 07:00 Pulse Ox 95 06/02/17 10:05 H&P (including ROS) documented in medical record: Yes Previous reaction to sedatives/anesthetics: No Dietary Status: NPO after Midnight Airway Assessment: Patient can open mouth completely, TMJ function normal Dentition: dentures removed Possible difficult airway: No ASA Classification *see protocol: CLASS III-Severe systemic disease Plan of Care: Pt appropriate candidate for procedure/moderate/conscious sedation , Risks/benefits of procedure/sedation discussed w/ patient/family, If not NPO; Risk of intake outweiged by necessity to perform procedure
[2017-06-02] MEDS ORDERED: *HR* Bivalirudin 250 MG VIAL IVC ONE (14:24)
[2017-06-02] MEDS ORDERED: *HR* Ticagrelor 90 MG TABLET ONE (14:29)
[2017-06-02] MEDS ORDERED: 0.9 % Sodium Chloride 1,000 ML IVC SCH (14:45)
[2017-06-02] MEDS ORDERED: *HR* HYDROmorphone 2 MG/ML SYRINGE ONE ×2 (15:05→16:58)
--- NOTE | 2017-06-02 18:00 | Invasive Diagnostic Lab Proc ---
Name: Kaiden Kaiser Date of Study: 06/02/2017 Date: 1950 Ht: 72.0in Medical Record#: [id number] Age: 67 Wt: 270.07lb Gender: Male BSA: 2.42 Order #: [id number] BMI: 36.58 Physicians Procedure Physician: Alexandro Weller DO Referring MD: Referring MD: Staff Name Position Time In Deb Mota RN Monitor 01:53 PM Timur Adorno RN Manager Quantitative 01:53 PM Kurtis Goldman RT (R) Scrub 01:53 PM Indications Indication Abnormal Test - Stress Procedures Performed Procedure L HRT ARTERY/VENTRICLE ANGIO PRQ CARD LANA STENT W/ANGIO 1 VSL Pre-Procedure Checklist Informed consent is complete signed and on chart. H&P is on chart. ID band is on and ID verified with patient. Patient NPO for procedure The procedure was described for the patient and questions were answered. ECG is on chart. Plan of Care Patient will tolerate the procedure without complications. Adequate level of comfort will be maintained. Hemodynamics will remain stable Patient will recover from procedure without complications. Respiratory function will be maintained. Cardiac rhythm will remain stable. Patient temperature will be maintained. Patient and/or family have verbalized understanding of the procedure. Patient Education Chief Complaint/Reason for Test: Cardiac Cath Developmental Category: Geriatric (65+ years) Developmentally Appropriate for Age: Yes Learning Barriers: None Education Needs: Procedure Education Method: Verbal Information Taught: Cardiac Cath Educational Evaluation: Able to repeat information Intravenous Access Time IV Size Location DC'd Fluid/Drip Rate Units RN 01:18 PM 22g 1" Patent On Arrival Lt Arm Timur Adorno RN Allergies morphine Vital Signs Time BP (mmHg) HR (bpm) O2 Sat. RR (bpm) LOC 01:54 PM / % 5 = Fully awake and oriented or at pre-proc level 02:06 PM / % 5 = Fully awake and oriented or at pre-proc level 02:06 PM / % 4 = Oriented but drowsy 01:55 PM 108 / 94 60 100 % 02:01 PM 150 / 74 54 93 % 02:05 PM 142 / 77 53 94 % 02:10 PM 130 / 73 55 98 % 02:15 PM 142 / 74 58 98 % 02:20 PM 147 / 74 71 97 % 02:25 PM 149 / 80 66 97 % 02:45 PM 139 / 71 58 95 % 16 5 = Fully awake and oriented or at pre-proc level 03:00 PM 122 / 73 51 96 % 16 5 = Fully awake and oriented or at pre-proc level 03:15 PM 139 / 78 55 100 % 16 5 = Fully awake and oriented or at pre-proc level 03:30 PM 162 / 103 55 100 % 16 5 = Fully awake and oriented or at pre-proc level 03:45 PM 177 / 94 58 100 % 16 5 = Fully awake and oriented or at pre-proc level 04:00 PM 138 / 61 48 98 % 16 5 = Fully awake and oriented or at pre-proc level 04:15 PM 168 / 96 53 98 % 16 5 = Fully awake and oriented or at pre-proc level 04:30 PM 167 / 74 54 99 % 18 5 = Fully awake and oriented or at pre-proc level 04:50 PM 166 / 85 55 99 % 18 5 = Fully awake and oriented or at pre-proc level 04:40 PM 164 / 94 57 99 % 18 5 = Fully awake and oriented or at pre-proc level 04:50 PM 176 / 93 55 99 % 18 5 = Fully awake and oriented or at pre-proc level 05:00 PM 177 / 91 56 98 % 18 5 = Fully awake and oriented or at pre-proc level 05:15 PM 155 / 87 58 98 % 18 5 = Fully awake and oriented or at pre-proc level 05:35 PM 167 / 75 54 98 % 17 5 = Fully awake and oriented or at pre-proc level Procedural Medications Time Medication Dose Units Method Given By 01:54 PM Oxygen 2 L/min nasal cannula Timur Adorno RN 02:00 PM Versed 2 mg Intravenous Timur Adorno RN 02:04 PM Lidocaine 2% 10 ml Subcutaneous Alexandro Weller DO 02:22 PM Angiomax 0.75mg/kg bolus: 18 ml Intravenous Timur Adorno RN 02:23 PM Angiomax 1.75mg/kg/hr: 42.7 ml/hr Intravenous Timur Adorno RN 02:34 PM Brilinta 180 mg Orally Timur Adorno RN 03:09 PM Dilaudid 1 mg Intravenous Ronan Collado RN 05:00 PM Dilaudid 1 mg Chalo Jeffers RN ASA Classification: CLASS III- Severe systemic disease (i.e. prior AMI, diabetes with vascular complications, morbid obesity) Steph Score Preprocedure Postprocedure Activity 2- Moves 4 extremities sustained head lift Activity 2- Moves 4 extremities sustained head lift Circulation 2- SBP +/= 20 points of pre-anesthetic level Circulation 2- SBP +/= 20 points of pre-anesthetic level Consciousness 2- Awake and alert oriented x 3 Consciousness 2- Awake and alert oriented x 3 O2 Saturation 2- Able to maintain O2 satruation of 92% on room air O2 Saturation 2- Able to maintain O2 satruation of 92% on room air Respiratory 2- Able to deep breathe and cough well Respiratory 2- Able to deep breathe and cough well Total Score 10 Total Score 10 Contrast Agent: Isovue Diagnostic Contrast: 80 ml Total Contrast: 80 ml Fluoro Dose: 767 mGy Procedure Log Time Note Enter By 01:53 PM Pt arrived to medical laboratory technicians 2 at 13:53 :53 PM Deb Mota RN Position: Monitor Time in: 13:53 :53 PM Timur Adorno RN Position: Manager Quantitative Time in: 13:53 :53 PM Kurtis Goldman RT (R) Position: Scrub Time in: 13:53 :53 PM Patient charges- Angio tray pack, Navilyst 3mm J, Pulse Oximetry and ACIST tubing and transducer :54 PM Case Delayed No mm:54 PM Hair removed from procedure site in procedure lab using clippers. Bilateral groin prepped with Chloraprep by Kurtis Goldman RT (R), then patient was draped. Skin intact. mm:54 PM Physican paged/called 13:54. oumm:[email or web address] PM Physican responded and notified patient is ready 13:54 oumm:[email or web address] PM Physician arrived 13:54 mm:54 PM Meet and greet completed :54 PM Sign in performed according to hospital policy. :54 PM Procedure start 13:54 mm:54 PM Time: 13:54 Oxygen on at 2 L/min per nasal cannula by Timur Adorno RN [email or web address]:[email or web address] PM Time: 13:54 Patient comfortable and pain free: Yes mm:54 PM Time: 13:54LOC: 5 = Fully awake and oriented or at pre-proc level tsoummers 01:54 PM CathStat 01:55 PM Vitals capture started with the following parameters, Patient=Adult, Interval=5 min, Initial Dgrzbiou=435 mmHg, Deflation Rate=5 mmHg, Cuff placed on Right Arm 01:55 PM HR=60 bpm, YMGV=498/94 mmhg, YiU3=472.0 %, Comment=SB 02:00 PM Time: 14:00 Versed 2 mg Intravenous Given by Timur Adorno RN tsoummers 02:00 PM Recorded ECG: HR=53 Condition=Condition 1 02:01 PM HR=54 bpm, GHIL=105/74 mmhg, SpO2=93.0 %, Comment=SB 02:02 PM Pressure channel 2 zeroed. 02:02 PM ASA Class CLASS III- Severe systemic disease (i.e. prior AMI, diabetes with vascular complications, morbid obesity) tsoummers 02:03 PM Clinical Presentation: Unstable angina tsoummers 02:04 PM Time out performed according to hospital policy tsoummers 02:04 PM Time: 14:04 10 ml Lidocaine 2% to right groin Subcutaneous Given by Alexandro Weller DO tsoummers 02:05 PM HR=53 bpm, JFBX=444/77 mmhg, SpO2=94.0 %, Comment=SB 02:06 PM Time: 14:06 Patient comfortable and pain free: Yes tsoummers 02:06 PM Time: 14:06LOC: 5 = Fully awake and oriented or at pre-proc level tsoummers 02:06 PM Micro-Introducer Kit utilized for sheath placement tsoummers 02:10 PM Unsuccessful access attempt # 1 into the right Femoral artery. Manual pressure applied to achieve hemostasis.. tsoummers 02:10 PM HR=55 bpm, TURU=833/73 mmhg, SpO2=98.0 %, Comment=SB 02:15 PM Access obtained by percutaneous puncture. 6Fr 10cm Terumo [place] sheath placed in right Femoral artery. [id number] tsoummers 02:15 PM 0.035 145cm Navilyst 3mmJ wire [id number] tsoummers 02:15 PM 6Fr FR 4 catheter inserted over the wire DNC tsoummers 02:15 PM HR=58 bpm, HPTW=946/74 mmhg, SpO2=98.0 %, Comment=SB 02:15 PM Catheter selectively placed in left ventricle tsoumm 02:15 PM wire removed oummers 02:16 PM Recorded Pressure: LV, HR=56, Condition=Condition 1 (Left Ventricle) LV 143/2/10 02:16 PM Recorded Pressure: LV, Ao, HR=74, Condition=Condition 1 (Left Ventricle) LV 134/-1/9, (Aorta) Ao 158/49/93 02:17 PM Recorded Pressure: Ao, HR=55, Condition=Condition 1 (Aorta) Ao 123/56/82 02:17 PM Bolus angiogram of left Ventricle complete: hand injection tsoumm 02:17 PM RCA angiography performed in multiple views. tsoummers 02:17 PM Catheter removed mm 02:18 PM 6Fr FL 4 catheter inserted over the wire DNC oumm 02:18 PM Coronary Dominance: right tsoummers 02:18 PM Lesion found in Mid RCA. Pre Stenosis: 90 Pre VERONICA Flow: 3: Complete and Brisk Flow/Perfusion tsoummers 02:18 PM Right Coronary, Right Posterior Descending Arteries with Right Posterolateral and Acute Marginal branches with 90 % stenosis. If graft is supplying this area, 0 % stenosis tsoummers 02:18 PM Recorded Pressure: Ao, HR=66, Condition=Condition 1 (Aorta) Ao 126/57/86 02:19 PM LCA angiography performed in multiple views. mm 02:20 PM Inflation device was opened. tsmm 02:20 PM HR=71 bpm, YAUC=792/74 mmhg, SpO2=97.0 %, Comment=SB 02:21 PM Catheter removed oumm 02:21 PM Time: 14:06LOC: 4 = Oriented but drowsy tsoumm 02:21 PM Time: 14:06 Patient comfortable and pain free: Yes oummers 02:22 PM 6Fr JR 4 Cordis guide catheter was used to cannulate the PCI vessel successfully. reused? No mm 02:22 PM Time: 14:22 Angiomax 0.75mg/kg bolus: 18 ml Intravenous Given by Timur Adorno RN [email or web address] 02:23 PM Time: 14:23 Angiomax 1.75mg/kg/hr: 42.7 ml/hr Intravenous Given by Timur Adorno RN Ford pump tsoumm 02:23 PM .014 ChoICE PT Extra Support 300cm guide wire across target lesion- successful. reused? No tsoumm 02:23 PM Recorded Pressure: Ao, HR=64, Condition=Condition 1 (Aorta) Ao 136/70/96 02:24 PM 3.5mm x 16mm Synergy drug-eluting stent across target lesion- successful Lot #[id number] tsmm 02:25 PM HR=66 bpm, RILW=417/80 mmhg, SpO2=97.0 %, Comment=SB 02:26 PM Stent deployed @ 14 chilo for 16 seconds tsoumm 02:27 PM Stent delivery system removed intact. tsoumm 02:27 PM Guide wire removed intact. tsoumm 02:29 PM Guide catheter removed intact. tsmm 02:30 PM Bolus angiogram of right Femoral complete: HAND INJECTION tsmm 02:30 PM Procedure completed at 14:30 tsoumm 02:30 PM Did you address VERONICA flow and Dominance? Yes tsoumm 02:31 PM Sign out completed: Radiation Dose 766.6 mGy Fluoro Time: 3.2 Isovue 370 - 200ml contrast 80 ml given by Alexandro Weller DO. Complications: NoneCardiac Rehab Consult needed: YesConfirmed administered medications: Yes mm 02:31 PM Isovue 370 - 200ml,1 Bottle(s) used. tsoumm 02:31 PM Sheath left in place to be pulled on floor/holding area tsoumm 02:31 PM Estimated Blood Loss: less than 20cc tsoumm 02:31 PM Post ECG NSR tsoumm 02:31 PM Post Blood Pressure 153/88 tsoumm 02:32 PM Information taught PCI and Cardiac Cath tsoumm 02:32 PM Education needs Procedure, Plan of Care, and Responsibilities of Patient in Care tsoumm 02:32 PM Learning barriers :None tsoumm 02:32 PM Education Methods Verbal tsoumm 02:32 PM Education evaluation Able to repeat information tsoumm 02:33 PM Site status No bleeding/hematoma - Rt Groin as reported by Kurtis Goldman RT (R) at 14:32 tsoummers 02:33 PM Opsite applied tsoumm 02:33 PM Plavix, Effient [facility] PM Delay to floor Bed availability 02:33 PM Family placed in consult room. 02:33 PM Complications: None :33 PM Fluoro Time: 3.2 02:33 PM Isovue 370 - 200ml contrast [address] Weller. 02:33 PM Radiation Dose 766.6 mGy 02:33 PM angiomax turned off 02:34 PM Time: 14:34 Brilinta 180 mg Orally Given by Timur Adorno RN :34 PM Lesion found in 2nd Diagonal. Pre Stenosis: 60 Pre VERONICA Flow: :35 PM Lesion found in Mid Circumflex. Pre Stenosis: 50 Pre VERONICA Flow: :35 PM Mid/Distal Left Anterior Descending Coronary Artery and diagonal branches with 60% stenosis. If graft is supplying this area, 0 % stenosis [facility]:35 PM Circumflex, Obtuse Marginal, Left Posterior Descending, and Left Posterolateral Coronary Arteries with 50 % stenosis. If graft is supplying this area, 0 % stenosis [facility] 02:41 PM Report given to Ursula SOMMER Pt taken to Holding room Room #4. 14:41 [facility] 02:41 PM Patient out of room: 14:41 [facility] 03:09 PM Time: 15:09 Dilaudid 1 mg Intravenous Given by Ronan Collado RN 03:[address] Dominguez in to see patient and speak with family. kwitte 03:42 PM Patient repositioned in bed in attempt to help with back pain. kwitte 04:40 PM Arterial sheath pulled using manual compression and V+ Pad for 15 minutes by Ronan Collado RN mprater 04:42 PM Right femoral sheath pulled per thomas RN. Manual pressure being held with Vpad. kwitte 04:55 PM Hemostasis to right femoral artery. Dressing applied with tegaderm. Patient educated on post sheath pull. Patient verbalized understanding. [email or web address] 05:04 PM Time: 17:00 Dilaudid 1 mg Given by Chalo Jeffers RN 05:17 PM Delay to floor Bed availability kwitte 05:17 PM Report given to Mya SOMMER Pt taken to Holding room Room #[id number]. 17:17 kwitte 05:17 PM Complications: None kwitte 05:17 PM Patient out of room: 17:17 kwitte 05:20 PM Manual pressure being held to right groin hematoma per Timur Adorno RN. kwitte 05:20 PM Site Status: Hematoma - Rt Groin as reported by Timur Adorno RN at 17:27 Size >5-10 cm kwitte 05:21 PM Hematoma noted to right groin prior to transport to floor. kwitte 05:30 PM Manual pressure continues to to be held to right femoral artery hematoma. kwitte 05:35 PM Hemostasis achieved, no hematoma noted. Pt comfortable and educated on importance of following post hemostatis intructions. [email or web address] Complications Complication None None Hemodynamics Pressures Site Systolic/A Wave Diastolic/V Wave Mean LV 143 2 10 LV 134 -1 9 AO 158 49 93 AO 123 56 82 AO 126 57 86 AO 136 70 96 Post Procedure Information Blood Pressure: 153/88 mmHg Rhythm: NSR Post procedural instructions were given Site Checks Time Location Status Staff Sheath In? Note 02:32 PM Rt Groin No bleeding/hematoma Kurtis Goldman RT (R) Yes 02:45 PM Rt Groin No bleeding/ No Hematoma Ronan Collado RN Yes 03:00 PM Rt Groin No bleeding/ No Hematoma Ronan Collado RN Yes 03:15 PM Rt Groin No bleeding/ No Hematoma Ronna Collado RN Yes 03:30 PM Rt Groin No bleeding/ No Hematoma Ronan Collado RN Yes 03:45 PM Rt Groin No bleeding/ No Hematoma Ronan Collado RN Yes 04:00 PM Rt Groin No bleeding/ No Hematoma Ursula Santos RN Yes 04:15 PM Rt Groin No bleeding/ No Hematoma Ursula Santos RN Yes 04:30 PM Rt Groin No bleeding/ No Hematoma Ursula Santos RN Yes 04:50 PM Rt Groin No bleeding/ No Hematoma Ursula Santos RN 04:40 PM Rt Groin No bleeding/ No Hematoma Ronan Collado RN 05:00 PM Rt Groin No bleeding/ No Hematoma Ronan Collado RN 05:00 PM Rt Groin No bleeding/ No Hematoma Ronan Collado RN 05:15 PM Rt Groin No bleeding/ No Hematoma Ronan Collado RN 05:20 PM Rt Groin Hematoma Ronan Collado RN 05:27 PM Rt Groin Hematoma Timur Adorno RN >5-10 cm 05:35 PM Rt Groin No bleeding/ No Hematoma Chalo Jeffers RN Site soft, montiored for additional 10 minutes, still soft. Pulses Time Site Pre-Procedure Post-Procedure Note 06/02/2017 1:19:00 PM Bilateral DP & PT 2+ 06/02/2017 2:45:00 PM Bilateral DP & PT 2+ 06/02/2017 4:00:00 PM Bilateral DP & PT 2+ 06/02/2017 4:30:00 PM Bilateral DP & PT 2+ 06/02/2017 5:40:00 PM Bilateral DP & PT 2+ Updated by Chalo Jeffers RN on 06/02/2017 5:50:18 PM electronically signed on 06/02/2017 5:52:11 PM with status of Final
[2017-06-02] MEDS: *HR* HYDROcodone/Acet 7.5/325 mg TABLET PO PRN (19:34)
[2017-06-02] MEDS: *HR* Ticagrelor 90 MG TABLET PO SCH (21:19)
[2017-06-03 06:14] LABS: Basophils % 0.4 %; Eosinophils # 0.3 K/mcL (0.0-0.6); Eosinophils % 3.5 %; Hematocrit 42.4 % (37.5-50.1); Hemoglobin 13.4 g/dL (12.9-16.9); Immature Granulocytes % 0.4 % (0-4); Lymphocytes # 1.7 K/mcL (0.6-4.6); Lymphocytes % 21.1 %; Mean Corpuscular HGB Conc 31.6 g/dL (31.6-35.5); Mean Corpuscular Hemoglobin 28.2 pg (28.0-33.3); Mean Corpuscular Volume 89.3 fL (83.0-100.0); Monocytes % 12.2 %; Platelet Count 254 K/mcL (140-400); Red Blood Count 4.75 M/mcL (4.19-5.50); Red Cell Distribution Width 13.7 % (11.5-14.5); Segmented Neutrophils % 62.4 %
[2017-06-03 06:18] LABS: INR 1.2; Prothrombin Time 13.1 Seconds (9.4-12.1)
[2017-06-03 06:28] LABS: BUN/Creatinine Ratio 11 (6-26); Blood Urea Nitrogen 11 mg/dL (8-23); Calcium 8.9 mg/dL (8.6-10.3); Carbon Dioxide 26 mEq/L (23-29); Chloride 103 mEq/L (98-107); Glucose 108 mg/dL (70-105); Osmolality,Calculated 282 (280-300); Potassium 4.5 mEq/L (3.5-5.1); Sodium 136 mEq/L (136-145); eGFR For African Americans > 60 (> 60); eGFR For Non-African Americans > 60 (> 60)
[2017-06-03 07:41] VITALS: BP 135/70
[2017-06-03] MEDS: *HR* Ticagrelor 90 MG TABLET PO SCH (08:38)
[2017-06-03] MEDS: Aspirin Enteric Coated 81 MG Tablet PO SCH (08:38)
[2017-06-03] MEDS: Furosemide 20 MG TABLET PO SCH (08:39)
[2017-06-03] MEDS: Finasteride 5 MG TABLET PO SCH (08:39)
[2017-06-03] MEDS: Insulin LISPRO 300 UNITS/3 ML VIAL SQ SCH ×2 (08:40→12:28)
--- NOTE | 2017-06-03 08:56 | Electrocardiograph Report ---
[facility] Test Date: 2017-05-31 Pat Name: Kaiden Kaiser Department: 104 Room: 2NE25 Gender: M Strategic Analyst: : 1950 Requested By: Bernardino Farley Order Number: [id number] Reading MD: Zane Mock Measurements Intervals [place] Rate: 82 P: 52 IN: 187 QRS: 14 QRSD: 91 T: 51 QT: 345 QTc: 384 Interpretive Statements SINUS RHYTHM wnl Electronically Signed On 06-03-2017 8:54:59 EDT by Zane Mock
--- NOTE | 2017-06-03 09:14 | Discharge Summary ---
<Chau Reyes - Last Filed: 06/03/17 15:02> Orders not resulted at time of discharge: Pending orders 06/01/17 10:59 NM irish perf SPECT multi [NM] Routine 06/02/17 14:36 ECG 12 lead ECG [ECG] Routine 06/03/17 07:00 ECG 12 lead ECG [ECG] Routine Date of Encounter: 06/03/17 - Discharge Diagnosis (1) Unstable angina Status: Acute (2) History of coronary artery stent placement Status: Acute (3) Hypertension Status: Acute Qualifiers: Hypertension type: essential hypertension Qualified Code(s): I10 - Essential (primary) hypertension (4) Diabetes Status: Acute Qualifiers: Diabetes mellitus type: type 2 Diabetes mellitus terminal operations supervisor insulin use: without mcc use Diabetes mellitus complication status: without complication Qualified Code(s): E11.9 - Type 2 diabetes mellitus without complications (5) DVT prophylaxis Status: Acute Hospital course: Mr. Kaiser is a 67 year old male - Time Spent with Patient Total time spent providing and/or coordinating discharge services: - Discharge Medications Prescriptions: Metoprolol [Lopressor] 25 mg PO BID #60 tablet Ticagrelor [Brilinta] 90 mg PO BID #60 tablet Home Medications: Amitriptyline [Elavil] 25 mg PO HS #0 10/15/14 [History] Aspirin Enteric Coated [Aspirin EC] 81 mg PO DAILY 10/15/14 [History] Atorvastatin [Lipitor] 80 mg PO HS 10/15/14 [History] Metformin [Glucophage] 1,000 mg PO BID 10/15/14 [History] Metoprolol [Lopressor] 25 mg PO BID #0 10/15/14 [History] Finasteride [Proscar] 5 mg PO DAILY tablet 10/16/14 [Rx] Furosemide [Lasix] 20 mg PO DAILY 05/31/17 [History] Glimepiride [Amaryl] 4 mg PO QAM 05/31/17 [History] HYDROcodone/Acet 7.5/325 mg [[place] 7.5-325 mg] 1 tab PO BID PRN 05/31/17 [ History] Lisinopril [Zestril] 20 mg PO DAILY 05/31/17 [History] Sildenafil Citrate [Revatio] 20 - 100 mg PO DAILY 05/31/17 [History] Testosterone Cypionate [Depo-Testosterone] 200 mg IM Q2W 05/31/17 [History] Hydromorphone (Pf) [Hydromorphone Intrathecal Pump] 1 each IT AD 06/01/17 [ History] Metoprolol [Lopressor] 25 mg PO BID #60 tablet 06/03/17 [Rx] Ticagrelor [Brilinta] 90 mg PO BID #60 tablet 06/03/17 [Rx] Allergies/Adverse Reactions: 3 Allergy/AdvReac Type Severity Reaction Status Date / Time morphine AdvReac Itching Verified 05/31/17 16:05 Date of admission: 05/31/17 21:31 Primary care physician: Aleida Nolen CNP Consults: 06/01/17 16:24 Consult to Cardiology [CONS] Routine Comment: Consulting Provider: Cardiology Randi Reason for Consult: [place], low positive nuclear stress test, prioir CAD Time Notified: 16:24 Call Completed: Yes 06/02/17 14:36 Consult to Cardiac Rehabilitation-Phase1 [CONS] Routine Comment: Reason for Consult: AMI Call Completed: Yes Consult to Nurse Navigator [CONS] Routine Comment: - Constitutional Vitals: Temp Pulse Resp BP Pulse Ox 98.6 F 54 16 135/70 94 06/03/17 07:36 06/03/17 07:36 06/03/17 07:36 06/03/17 07:36 06/03/17 07:36 - Patient Status Disposition: Home, Self-Care Condition: Good - Discharge Instructions Instructions: Chest Pain (DC) Follow Up With: Aleida Nolen CNP [Primary Care Provider] - 06/08/17 10:35 am - Attending Attestation I performed an independent interview and examine this patient. I agree with the findings, assessment, and plan of Dr. Orta, internal medicine finance accounting internship. I also discussed the case with cardiology at bedside. Pt is doing well. Pt underwent PTCA with drug-eluting stent of his RCA. Pt is not complaining of any further symptoms. No chest pain. She will continue on aspirin, [place] tech , statin, and beta lois. Lopid cardiology as arranged. Patient is stable for discharge. <Pete Orta - Last Filed: 06/03/17 15:57> Orders not resulted at time of discharge: Pending orders 06/01/17 10:59 NM irish perf SPECT multi [NM] Routine 06/02/17 14:36 ECG 12 lead ECG [ECG] Routine 06/03/17 07:00 ECG 12 lead ECG [ECG] Routine Date of Encounter: 06/03/17 Time of Encounter: 09:00 - Discharge Diagnosis (1) Unstable angina Priority: Primary Status: Acute (2) History of coronary artery stent placement Priority: Secondary Status: Acute (3) Hypertension Priority: Secondary Status: Acute Qualifiers: Hypertension type: essential hypertension Qualified Code(s): I10 - Essential (primary) hypertension (4) Diabetes Priority: Secondary Status: Acute Qualifiers: Diabetes mellitus type: type 2 Diabetes mellitus mcc insulin use: without terminal operations supervisor use Diabetes mellitus complication status: without complication Qualified Code(s): E11.9 - Type 2 diabetes mellitus without complications Hospital course: Mr. Kaiser is a 67 year old male who presents with chest pain. He has had LHC with stent in the past and reported chest pain is similar to before he had his stent placed. Stress test demonstrated small area of ischemia and patient underwent LHC which revealed 90% stenosis to mRCA. He received PTCA and LANA without complication. Patient has complete symptomatic relieve. He is to be discharged today and continue brillinta and metoprolol. Follow up with cardiology outpatient. - Time Spent with Patient Total time spent providing and/or coordinating discharge services: Date of admission: 05/31/17 23:05 Primary care physician: Aleida Nolen CNP Consults: 06/01/17 16:24 Consult to Cardiology [CONS] Routine Comment: Consulting Provider: Cardiology Randi Reason for Consult: [place], low positive nuclear stress test, prioir CAD Time Notified: 16:24 Call Completed: Yes 06/02/17 14:36 Consult to Cardiac Rehabilitation-Phase1 [CONS] Routine Comment: Reason for Consult: AMI Call Completed: Yes Consult to Nurse Navigator [CONS] Routine Comment: - Constitutional Vitals: Temp Pulse Resp BP Pulse Ox 98.6 F 54 16 135/70 94 06/03/17 07:36 06/03/17 07:36 06/03/17 07:36 06/03/17 07:36 06/03/17 07:36 General appearance: Present: A&O X 3, no acute distress, answers questions appropriately - Head Head exam: Present: atraumatic, normocephalic - Eye Eye exam: Present: PERRL, conjuntiva pink, sclera anicteric Pupils: Present: PERRL - Neck Neck exam general surgery: Present: supple, trachea midline. Absent: lymphadenopathy - Respiratory Respiratory exam: Present: CTAB. Absent: accessory muscle use, rales, rhonchi, wheezes - Cardiovascular Cardiovascular exam: Present: RRR, +S1, +S2. Absent: diastolic murmur, gallop, rubs, systolic murmur - GI/Abdominal GI/Abdominal exam: Present: normal bowel sounds, soft, no peritoneal signs. Absent: distended, tenderness - Extremities Exam Extremities exam: Present: warm, radial pulses palpable and symmetrical. Absent : calf tenderness, cyanotic, pedal edema - Neurological Exam Neurological exam: Present: CN II-XII intact, oriented X3, no focal deficits. Absent: pronater drift, facial droop, speech deficit - Skin Skin exam: Present: dry, intact - Patient Status Functional capacity at discharge: independent ambulation Overall status at discharge: patient is back to baseline - Diet and Activity Activity: as per the cardiac rehab, increase activity as tolerated Diet: advance to your usual diet
--- NOTE | 2017-06-03 13:00 | Cardiology Progress Note ---
Date of Encounter: 06/03/17 Time of Encounter: 09:00 Assessment and Plan (1) Abnormal stress test Current Visit: Yes Status: Acute S/p LHC for abnormal stress test. LHC revealed 90% stenosis to the mRCA. He received PTCA and LANA without complication. There was moderate non-obstructive disease remaining. TTE completed this admission and shows EF 55-60 %. No significant valvular disease. CTA negative for PE. There was no complication from the procedure. Denies recurrent chest pain. Ecchymosis noted in right groin but soft. No hematoma palpated. Hgb stable. Importance of DAPT with asa and brilinta uninterrupted for minimum of one year discussed and she voiced understanding. Continue statin. Metoprolol decreased to 25 mg BID for nocturnal bradycardia. HR seen as low as 39 bpm and 2 sec pauses. No daytime bradycardia seen. Denies symptoms. Avg HR 72 bpm. Cardiac rehab ordered. Cardiology will sign off. Out-pt f/u will be coordinated by [facility]. (2) Coronary artery disease Current Visit: No Status: Acute H/o previous cardiac stent placement. S/p PCI to the RCA. Continue asa, brilinta, statin, and bb. Qualifiers: Coronary Disease-Associated Artery/Lesion type: [place] artery [place] vs. transplanted heart: [place] heart Associated angina: without angina Qualified Code(s): I25.10 - Atherosclerotic heart disease of [place] coronary artery without angina pectoris (3) Chest pain Current Visit: Yes Status: Acute Qualifiers: Chest pain type: unspecified Qualified Code(s): R07.9 - Chest pain, unspecified Discussion w patient/family: The assessment and plan as outlined above was discussed with the patient and/or family members who expressed understanding and agreement. All questions were answered. Thank you for involving us in the care of your patient. Please call with any questions. Subjective Principal diagnosis: abnormal stress test Interval history: Mr. Kaiser denies chest pain. C/o bruising at right femoral access site and mild tenderness. Ambulating with no problem. Objective Vital Signs Temp Pulse Resp BP Pulse Ox 06/03/17 07:36 98.6 F 54 16 135/70 94 06/03/17 03:17 97.9 F 56 16 151/81 96 06/02/17 22:55 98 F 58 16 170/75 97 06/02/17 21:17 96 04/19/18 19:30 96 06/02/17 19:16 98 F 54 16 173/85 99 06/02/17 18:15 50 18 191/85 97 06/02/17 18:14 50 16 188/87 97 06/02/17 15:00 98.2 F 127 18 147/79 96 Intake and Output 06/02/17 06/03/17 06/03/17 23:59 07:59 15:59 Intake Total 240 / 240 240 / 240 Output Total 1650 / 1650 900 / 900 300 / 300 Balance -1410 / -1410 -900 / -900 -60 / -60 Intake: Oral 240 / 240 240 / 240 Output: Urine 1650 / 1650 900 / 900 300 / 300 Other: Meal Dinner Breakfast Percent of Meal Consumed 10% 100% # Voids 1 Weight 122.6 kg Blood Glucose* 84 90 201 Patient Weight 06/03/17 23:59 Weight 122.6 kg General: Conversant, No Apparent Distress HEENT: Atraumatic, Normocephaly, Mucus Membranes Moist Neck: No JVD, Normal carotid pulses Cardiac: Reg Rate and Rhythm, Normal S1 and S2, No Murmur Lungs: Normal Breath Sounds, No Wheeze, Rales, Rhonchi Neuro: Alert and responsive, No focal deficits noted Abdomen: Soft, Non-Tender Skin: No rashes noted on visualized skin Musculoskeletal: No Chest Wall Tenderness Extremities: No Clubbing, No Cyanosis, No Edema, Normal Pulses, Other ( ecchymosis in right groin. No hematoma. No tenderness to palpation. Dressing removed and no drainage seen. No redness. ) Results 06/03/17 05:46 06/03/17 05:46 Lab Results 06/03/17 06/03/17 06/03/17 05:46 05:46 05:46 WBC 8.0 Hgb 13.4 Hct 42.4 Plt Count 254 INR 1.2 Sodium 136 Potassium 4.5 Chloride 103 Carbon Dioxide 26 BUN 11 Creatinine 1.04 Glucose 108 H Calcium 8.9 - Imaging and Cardiology Echo: report reviewed Cardiac cath: report reviewed - EKG Interpretation EKG results cardiology: personally reviewed Consult Discharge Plan - Plan Referrals: Aleida Nolen CNP [Primary Care Provider] - 06/08/17 10:35 am
--- NOTE | 2017-06-03 15:09 | Electrocardiograph Report ---
[address] [address] Test Date: 2017-05-31 Pat Name: Kaiden Kaiser Department: 103 Room: [facility] Gender: M [employer] Construction Supervisor: JENNIFER : 1950 Requested By: Louie Cole Order Number: [id number] Reading MD: Eduard Dominguez Measurements Intervals [place] Rate: 75 P: 56 KS: 196 QRS: 15 QRSD: 94 T: 43 QT: 357 QTc: 386 Interpretive Statements SINUS RHYTHM Electronically Signed On 06-03-2017 15:07:47 EDT by Eduard Dominguez
--- NOTE | 2017-06-03 15:23 | Electrocardiograph Report ---
[address] [address] Test Date: 2017-06-02 Pat Name: Kaiden Kaiser Department: 111 Room: 2NE25 Gender: M Landscape Laborer: : 1950 Requested By: Alexandro Weller Order Number: [id number] Reading MD: Chante Avery Measurements Intervals [place] Rate: 54 P: 62 MD: 180 QRS: 33 QRSD: 106 T: 26 QT: 421 QTc: 407 Interpretive Statements SINUS BRADYCARDIA WITH SINUS ARRHYTHMIA Electronically Signed On 06-03-2017 15:22:06 EDT by Chante Avery
== END 2017-06-03 15:47 | disposition home or self-care (01) ==
LOC: EMEROO 13:09 → 2NENU 13:09
PROVIDERS: ADMIT Family Medicine; ATTEND Hospitalist

== ENCOUNTER 2019-04-19 09:48 | Observation (INO) ==
[2019-04-19] MEDS ORDERED: Nitroglycerin 0.4 MG TAB.SUBL SL PRN (10:09)
[2019-04-19] MEDS ORDERED: Aspirin 325 MG TABLET PO ONE (10:57)
[2019-04-19 11:33] LABS: Basophils % 0.4 %; Eosinophils # 0.1 K/mcL (0.0-0.6); Eosinophils % 1.4 %; Hematocrit 42.4 % (37.5-50.1); Hemoglobin 13.4 g/dL (12.9-16.9); Immature Granulocytes % 0.4 % (0-4); Lymphocytes % 19.9 %; Mean Corpuscular HGB Conc 31.6 g/dL (31.6-35.5); Mean Corpuscular Volume 94.9 fL (83.0-100.0); Mean Platelet Volume 8.5 fL (9.4-12.4); Monocytes # 0.8 K/mcL (0.0-1.3); Monocytes % 8.2 %; Neutrophils # 6.9 K/mcL (1.6-8.9); Platelet Count 277 K/mcL (140-400); Red Blood Count 4.47 M/mcL (4.19-5.50); Red Cell Distribution Width 14.8 % (11.5-14.5); Segmented Neutrophils % 69.7 %
[2019-04-19 11:38] LABS: INR 1.1; Prothrombin Time 12.8 Seconds (9.4-12.1)
[2019-04-19 11:40] LABS: Activated Partial Thrombo Time 33.6 Seconds (26.0-36.0)
[2019-04-19 12:04] LABS: BUN/Creatinine Ratio 8 (6-26); Blood Urea Nitrogen 9 mg/dL (8-23); Calcium 9.5 mg/dL (8.6-10.3); Carbon Dioxide 31 mEq/L (23-29); Chloride 99 mEq/L (98-107); Glucose 123 mg/dL (70-105); Osmolality,Calculated 282 (280-300); Potassium 4.1 mEq/L (3.5-5.1); Sodium 136 mEq/L (136-145); Troponin I < 0.03 ng/mL (< 0.04); eGFR For African Americans > 60 (> 60); eGFR For Non-African Americans > 60 (> 60)
[2019-04-19] MEDS ORDERED: Naloxone 0.4 MG/ML INJ IVP PRN (12:56)
[2019-04-19] MEDS ORDERED: Dextrose Gel 15 GM/37.5 ML TUBE PO PRN ×3 (12:59)
[2019-04-19] MEDS ORDERED: *HR* Dextrose 50 % in Water (Syg) 50 ML SYRINGE IVP PRN (12:59)
[2019-04-19] MEDS ORDERED: D5% in Water 1,000 ML IVC PRN (12:59)
[2019-04-19 13:31] LABS: Chol/HDL Ratio 4.9 (0-4.9); Cholesterol 147 mg/dL (< 200); HDL Cholesterol 30 mg/dL (40-59); LDL Cholesterol,Calculated 86 mg/dL (0-99); Triglycerides 153 mg/dL (< 150)
[2019-04-19] MEDS: Insulin LISPRO 300 UNITS/3 ML VIAL SQ SCH ×2 (14:33→16:47)
[2019-04-19 15:45] LABS: Estimated Average Glucose 148 mg/dl
[2019-04-19 15:57] LABS: Adenovirus Not Detected (Not Detect); Bordetella Pertussis Not Detected (Not Detect); Chlamydophila pneumoniae Not Detected (Not Detect); Coronavirus 229E Not Detected (Not Detect); Coronavirus HKU1 Not Detected (Not Detect); Coronavirus NL63 Not Detected (Not Detect); Coronavirus OC43 Not Detected (Not Detect); Human Metapneumovirus Not Detected (Not Detect); Human Rhinovirus/Enterovirus Not Detected (Not Detect); Influenza A Subtype 2009 H1 Not Detected (Not Detect); Influenza B Not Detected (Not Detect); Mycoplasma pneumoniae Not Detected (Not Detect); Parainfluenza Virus 1 Not Detected (Not Detect); Parainfluenza Virus 2 Not Detected (Not Detect); Parainfluenza Virus 3 Not Detected (Not Detect); Parainfluenza Virus 4 Not Detected (Not Detect); Respiratory Syncytial Virus Not Detected (Not Detect)
[2019-04-19] MEDS: *HR* Heparin 5,000 UNIT/ML VIAL SQ SCH (18:48)
[2019-04-19] MEDS ORDERED: Melatonin 3 MG TABLET PO STA (20:48)
[2019-04-19] MEDS ORDERED: Insulin LISPRO 300 UNITS/3 ML VIAL SQ SCH (21:00)
[2019-04-20 00:50] LABS: Basophils % 0.4 %; Eosinophils # 0.1 K/mcL (0.0-0.6); Eosinophils % 1.2 %; Hematocrit 39.7 % (37.5-50.1); Hemoglobin 12.8 g/dL (12.9-16.9); Immature Granulocytes % 0.5 % (0-4); Lymphocytes % 19.6 %; Mean Corpuscular HGB Conc 32.2 g/dL (31.6-35.5); Mean Corpuscular Hemoglobin 31.1 pg (28.0-33.3); Mean Corpuscular Volume 96.4 fL (83.0-100.0); Mean Platelet Volume 8.7 fL (9.4-12.4); Monocytes # 0.9 K/mcL (0.0-1.3); Monocytes % 8.4 %; Neutrophils # 7.3 K/mcL (1.6-8.9); Platelet Count 268 K/mcL (140-400); Red Blood Count 4.12 M/mcL (4.19-5.50); Red Cell Distribution Width 14.6 % (11.5-14.5); Segmented Neutrophils % 69.9 %; White Blood Count 10.4 K/mcL (4.3-11.1)
[2019-04-20 02:11] LABS: BUN/Creatinine Ratio 9 (6-26); Blood Urea Nitrogen 10 mg/dL (8-23); Calcium 8.9 mg/dL (8.6-10.3); Carbon Dioxide 29 mEq/L (23-29); Chloride 102 mEq/L (98-107); Glucose 116 mg/dL (70-105); Magnesium 1.9 mg/dL (1.6-2.6); Osmolality,Calculated 284 (280-300); Phosphorous 4.4 mg/dL (2.7-4.5); Potassium 3.8 mEq/L (3.5-5.1); Sodium 137 mEq/L (136-145); eGFR For African Americans > 60 (> 60); eGFR For Non-African Americans > 60 (> 60)
[2019-04-20] MEDS: *HR* Heparin 5,000 UNIT/ML VIAL SQ SCH (05:19)
[2019-04-20] MEDS ORDERED: Regadenoson 0.4 MG/5 ML SYRINGE IVP ONE (06:07)
[2019-04-20] MEDS ORDERED: Aspirin 81 MG TAB.CHEW PO SCH (09:00)
[2019-04-20] MEDS ORDERED: *HR* HYDROcodone/Acet 7.5/325 mg TABLET PO PRN (09:02)
[2019-04-20] MEDS: Insulin LISPRO 300 UNITS/3 ML VIAL SQ SCH (09:04)
[2019-04-20] MEDS ORDERED: Furosemide 20 MG TABLET PO SCH (09:15)
[2019-04-20] MEDS ORDERED: Metoprolol XL (24 HR) Succ 25 MG TAB.ER.24H PO SCH (09:15)
[2019-04-20] MEDS ORDERED: lisinopriL 10 MG TABLET PO SCH (09:15)
[2019-04-20] MEDS ORDERED: Finasteride 5 MG TABLET PO SCH (09:15)
[2019-04-20 10:48] VITALS: BP 138/72
[2019-04-20] MEDS ORDERED: NON-FORMULARY MEDICATION 1 EACH EACH (Atorvastatin Calcium [Lipitor] 80 MG) PO SCH (21:00)
== END 2019-04-20 13:33 | disposition home or self-care (01) ==
LOC: 3BNU 09:48 → EMEROOARM 09:48 → SUATTDRO 12:56 → 3BNU 13:00
PROVIDERS: ADMIT Internal Medicine; ATTEND Internal Medicine

== ENCOUNTER 2020-01-13 09:58 | Inpatient (IN) ==
[2020-01-13] MEDS ORDERED: Furosemide 20 MG/2 ML VIAL IVP ONE (10:26)
[2020-01-13 10:42] LABS: Basophils % 0.2 %; Eosinophils # 0.2 K/mcL (0.0-0.6); Eosinophils % 0.9 %; Hematocrit 34.1 % (37.5-50.1); Hemoglobin 10.6 g/dL (12.9-16.9); Immature Granulocytes % 0.6 % (0-4); Lymphocytes # 1.4 K/mcL (0.6-4.6); Lymphocytes % 6.6 %; Mean Corpuscular HGB Conc 31.1 g/dL (31.6-35.5); Mean Corpuscular Hemoglobin 28.3 pg (28.0-33.3); Mean Corpuscular Volume 90.9 fL (83.0-100.0); Mean Platelet Volume 8.9 fL (9.4-12.4); Monocytes # 1.4 K/mcL (0.0-1.3); Monocytes % 6.7 %; Neutrophils # 17.6 K/mcL (1.6-8.9); Platelet Count 252 K/mcL (140-400); Red Blood Count 3.75 M/mcL (4.19-5.50); Red Cell Distribution Width 12.9 % (11.5-14.5); White Blood Count 20.7 K/mcL (4.3-11.1)
[2020-01-13 11:05] LABS: BUN/Creatinine Ratio 14 (6-26); Blood Urea Nitrogen 19 mg/dL (8-23); Calcium 8.9 mg/dL (8.6-10.3); Carbon Dioxide 25 mEq/L (23-29); Chloride 104 mEq/L (98-107); Glucose 110 mg/dL (70-105); Osmolality,Calculated 289 (280-300); Sodium 138 mEq/L (136-145); eGFR For African Americans > 60 (> 60); eGFR For Non-African Americans 53 (> 60)
[2020-01-13 11:06] LABS: Troponin I < 0.03 ng/mL (< 0.04)
[2020-01-13] MEDS ORDERED: Isovue-370 500 ML BOTTLE IVP ONE (11:32)
[2020-01-13] MEDS ORDERED: cefTRIAXone 1,000 MG in 0.9 % Sodium Chloride Mini Bag 100 ML IVPB ONE (11:36)
[2020-01-13] MEDS ORDERED: Azithromycin 500 MG in 0.9 % Sodium Chloride 250 ML IVPB ONE (12:00)
[2020-01-13] MEDS ORDERED: Ondansetron 4 MG/2 ML VIAL IVP PRN (17:07)
[2020-01-13] MEDS ORDERED: Acetaminophen 325 MG TABLET PO PRN (17:07)
[2020-01-13] MEDS ORDERED: Naloxone 0.4 MG/ML INJ IVP PRN (17:07)
[2020-01-13 17:42] LABS: Adenovirus Not Detected (Not Detect); Bordetella Pertussis Not Detected (Not Detect); Chlamydophila pneumoniae Not Detected (Not Detect); Coronavirus 229E Not Detected (Not Detect); Coronavirus HKU1 Not Detected (Not Detect); Coronavirus NL63 Not Detected (Not Detect); Coronavirus OC43 Not Detected (Not Detect); Human Metapneumovirus Not Detected (Not Detect); Human Rhinovirus/Enterovirus Not Detected (Not Detect); Influenza A Subtype 2009 H1 Not Detected (Not Detect); Influenza B Not Detected (Not Detect); Mycoplasma pneumoniae Not Detected (Not Detect); Parainfluenza Virus 1 Not Detected (Not Detect); Parainfluenza Virus 2 Not Detected (Not Detect); Parainfluenza Virus 3 Not Detected (Not Detect); Parainfluenza Virus 4 Not Detected (Not Detect); Respiratory Syncytial Virus Not Detected (Not Detect); SARS-CoV-2 Not Detected (Not Detect)
[2020-01-13] MEDS ORDERED: Dextrose Gel 15 GM/37.5 ML TUBE PO PRN ×2 (18:37)
[2020-01-13] MEDS ORDERED: D5% in Water 1,000 ML IVC PRN (18:37)
[2020-01-13] MEDS ORDERED: *HR* Dextrose 50 % in Water (Vial) 50 ML VIAL IVP PRN (18:37)
[2020-01-13] MEDS: lisinopriL 10 MG TABLET PO SCH (20:39)
[2020-01-13] MEDS ORDERED: Insulin LISPRO 300 UNITS/3 ML VIAL SQ SCH (21:00)
[2020-01-14 05:34] LABS: INR 1.3
[2020-01-14 05:35] LABS: Hemoglobin 9.3 g/dL (12.9-16.9); Mean Corpuscular Hemoglobin 28.9 pg (28.0-33.3); Mean Corpuscular Volume 93.2 fL (83.0-100.0); Mean Platelet Volume 9.3 fL (9.4-12.4); Platelet Count 250 K/mcL (140-400); Red Blood Count 3.22 M/mcL (4.19-5.50); White Blood Count 12.9 K/mcL (4.3-11.1)
[2020-01-14 05:56] LABS: BUN/Creatinine Ratio 17 (6-26); Blood Urea Nitrogen 23 mg/dL (8-23); Calcium 8.8 mg/dL (8.6-10.3); Carbon Dioxide 26 mEq/L (23-29); Chloride 104 mEq/L (98-107); Glucose 41 mg/dL (70-105); Magnesium 1.9 mg/dL (1.6-2.6); Osmolality,Calculated 288 (280-300); Phosphorous 4.4 mg/dL (2.7-4.5); Potassium 3.7 mEq/L (3.5-5.1); Sodium 139 mEq/L (136-145); Troponin I < 0.03 ng/mL (< 0.04); eGFR For African Americans > 60 (> 60); eGFR For Non-African Americans 53 (> 60)
[2020-01-14] MEDS ORDERED: *HR* Enoxaparin 40 MG/0.4 ML SYRINGE SQ SCH (06:00)
[2020-01-14] MEDS ORDERED: Insulin LISPRO 300 UNITS/3 ML VIAL SQ SCH (07:30)
[2020-01-14 07:36] VITALS: BP 110/68
[2020-01-14] MEDS: lisinopriL 10 MG TABLET PO SCH (07:50)
[2020-01-14] MEDS ORDERED: Finasteride 5 MG TABLET PO SCH (09:00)
[2020-01-14] MEDS ORDERED: Metoprolol XL (24 HR) Succ 25 MG TAB.ER.24H PO SCH (09:00)
[2020-01-14] MEDS ORDERED: Aspirin Enteric Coated 81 MG Tablet PO SCH (09:00)
[2020-01-14] MEDS ORDERED: Furosemide 20 MG TABLET PO SCH (09:00)
[2020-01-14] MEDS ORDERED: cefTRIAXone 1,000 MG in Water for inj. (sterile) 10 ML IVP SCH (09:00)
[2020-01-14] MEDS ORDERED: Azithromycin 250 MG TABLET PO SCH (09:00)
[2020-01-14] MEDS ORDERED: Furosemide 20 MG/2 ML VIAL IVP ONE (10:12)
== END 2020-01-14 11:40 | disposition home or self-care (01) | DRG 871 ==
LOC: CDU 09:58 → EMEROOARM 09:58 → CDU 17:00 → SUATTDRO 18:43 → 2ANU 19:34
PROVIDERS: ADMIT Internal Medicine; ATTEND Internal Medicine